=== PATIENT | male | born 1950 | race Caucasian/White ===

== ENCOUNTER 2020-09-21 13:59 | Inpatient (IN) | payer OTHER ==
[~2020-09-21] VITALS: Ht 182.9 cm; Wt 76.4 kg
[2020-09-21 14:59] LABS: Basophils # (auto) 0 10 ^3/uL (0-0.2); Basophils % (auto) 0.3 % (0.0-2.0); Eosinophils # (auto) 0 10 ^3/uL (0-0.8); Eosinophils % (auto) 0.2 % (0.0-7.0); Hematocrit 42.6 % (41.0-53.0); Hemoglobin 14.5 g/dL (13.5-17.5); Lymphocytes # (auto) 0.9 10 ^3/uL (0.4-5.4); Lymphocytes % (auto) 11.6 % (10.0-50.0); Mean Corpuscular Hemoglobin 29.6 pg (28.0-32.0); Mean Corpuscular Hgb Conc. 34.1 g/dL (32.0-36.0); Mean Corpuscular Volume 86.8 fL (80.0-100.0); Monocytes # (auto) 0.5 10 ^3/uL (0-1.3); Neutrophils # (auto) 6.3 10 ^3/uL (1.6-8.6); Neutrophils % (auto) 80.9 % (37.0-80.0); Red Blood Cells 4.91 10^6/uL (4.5-5.90); White Blood Cell 7.8 10^3/uL (4.4-10.8)
[2020-09-21] MEDS ORDERED: SODIUM CHLORIDE 0.9% 1,000 ML IVB ONE (15:00)
[2020-09-21] MEDS ORDERED: KETOROLAC TROMETH 30 MG/ML 1ML VIAL IV ONE (15:00)
[2020-09-21] MEDS ORDERED: MORPHINE SULFATE 4 MG/ML SYR/VIAL IV ONE (15:00)
[2020-09-21] MEDS ORDERED: ONDANSETRON HCL 4 MG/2 ML VIAL IV ONE (15:00)
[2020-09-21 15:04] LABS: Albumin 3.7 g/dL (3.4-5.0); Anion Gap 11 (5-15); Blood Urea Nitrogen 16 mg/dL (7-18); Carbon Dioxide 24 mmol/L (21-32); Chloride 100 mmol/L (98-107); Glucose 159 mg/dL (74-106); Potassium 3.2 mmol/L (3.5-5.1); Sodium 135 mmol/L (136-145)
[2020-09-21 15:06] LABS: Alanine Aminotransferase 12 U/L (16-61); Aspartate Aminotransferase 7 U/L (15-37); BUN/Creatinine Ratio 19.8; Calcium 8.4 mg/dL (8.5-10.1); GFR African American 122 mL/min; GFR Non-African American 101 mL/min
[2020-09-21 15:11] LABS: Alkaline Phosphatase 83 U/L (45-117); Bilirubin, Total 0.6 mg/dL (0.2-1.0)
[2020-09-21 15:18] LABS: Urine Bacteria NONE SEEN /hpf (None Seen); Urine Blood 2+ /uL (Negative); Urine Mucus FEW (None Seen); Urine Specific Gravity 1.028 (1.001-1.035); Urine WBC 5 /hpf (0 - 3)
[2020-09-21] MEDS ORDERED: POTASSIUM CHL 20 Meq TABLET PO ONE (16:15)
[2020-09-21] MEDS ORDERED: DOCUSATE SOD 100 MG CAP PO PRN (18:30)
[2020-09-21] MEDS ORDERED: ACETAMINOPHEN 325 MG TAB PO PRN (18:30)
[2020-09-21] MEDS ORDERED: ALUM & MAG HYDROX-SIMETH LIQ(MAALOX) 30 ML PO PRN (18:30)
[2020-09-21] MEDS ORDERED: LORazepam 0.5 MG TAB PO PRN (18:30)
[2020-09-21] MEDS ORDERED: LACTATED RINGER'S 1,000 ML IV ONE (18:30)
[2020-09-21] MEDS ORDERED: ONDANSETRON HCL 4 MG/2 ML VIAL IV PRN (18:30)
[2020-09-21] MEDS ORDERED: FUROSEMIDE 40 MG/4 ML VIAL IV ONE (18:30)
[2020-09-21] MEDS ORDERED: NITROGLYCERIN 0.4 MG SL TAB SL PRN ×2 (18:30)
[2020-09-21] MEDS ORDERED: MORPHINE SULF INJ 2 MG/ML SYRINGE 1ML IV PRN ×2 (18:30)
[2020-09-21] MEDS ORDERED: CEFTRIAXONE SODIUM 2 GM in D5W 5% 50 ML IV ONE (18:30)
[2020-09-21 18:55] LABS: Cholesterol 189 mg/dL (< 200); Triglycerides 98 mg/dL (< 150)
[2020-09-21 18:58] LABS: HDL Cholesterol 51 mg/dL (40-59); LDL Cholesterol 116 mg/dL (< 100)
[2020-09-21 19:07] LABS: Alcohol, Urine < 3.0 mg/dL (0-10); Amphetamine Screen, Urine NEGATIVE (NEGATIVE); Barbiturate Scree,Urine NEGATIVE (NEGATIVE); Benzodiazephine Screen, Urine NEGATIVE (NEGATIVE); Cannabinoid Screen, Urine POSITIVE (NEGATIVE); Cocaine Screen, Urine NEGATIVE (NEGATIVE); Opiate Scree,Urine POSITIVE (NEGATIVE); Phencyclidine Screen, Urine NEGATIVE (NEGATIVE)
[2020-09-21] MEDS: MORPHINE SULF INJ 2 MG/ML SYRINGE 1ML IV PRN (19:07)
[2020-09-21] MEDS: SOD CHL 0.9%/ KCL 20MEQ 1,000 ML IV SCH (19:07)
[2020-09-21 23:00] VITALS: BP 158/92
[2020-09-22] MEDS: MORPHINE SULF INJ 2 MG/ML SYRINGE 1ML IV PRN ×2 (00:19→09:20)
[2020-09-22 05:05] VITALS: BP 150/55
[2020-09-22] MEDS: SOD CHL 0.9%/ KCL 20MEQ 1,000 ML IV SCH ×2 (06:26→23:21)
[2020-09-22 08:59] LABS: BUN/Creatinine Ratio 17.7; Calcium 8.2 mg/dL (8.5-10.1); Potassium 3.4 mmol/L (3.5-5.1)
[2020-09-22] MEDS: CEFTRIAXONE SODIUM 2 GM in D5W 5% 50 ML IV SCH (09:19)
[2020-09-22] MEDS: POTASSIUM CHL 20 Meq TABLET PO SCH (09:20)
[2020-09-22] MEDS: HYDROcodone-ACET 5/325MG TAB PO PRN (11:59)
[2020-09-22] MEDS ORDERED: KETOROLAC TROMETH 30 MG/ML 1ML VIAL IV ONE (12:45)
[2020-09-22] MEDS ORDERED: SODIUM CHLORIDE 0.9% 1,000 ML IV ONE (12:45)
[2020-09-22 12:50] VITALS: BP 122/66
[2020-09-22] MEDS ORDERED: MANNITOL FTV 25% 12.5 GM/50 ML 50 ML IV ONE (13:00)
[2020-09-22 16:50] VITALS: BP 168/85
[2020-09-22] MEDS: TAMSULOSIN HYDROCHLORIDE 0.4 MG CAP PO SCH (17:41)
[2020-09-22 22:00] VITALS: BP 159/70
[2020-09-23] MEDS: HYDROcodone-ACET 5/325MG TAB PO PRN ×2 (00:06→21:09)
[2020-09-23 05:00] VITALS: BP 164/76
[2020-09-23] MEDS: MORPHINE SULF INJ 2 MG/ML SYRINGE 1ML IV PRN ×3 (05:09→23:33)
[2020-09-23] MEDS: CEFTRIAXONE SODIUM 2 GM in D5W 5% 50 ML IV SCH (09:23)
[2020-09-23] MEDS: POTASSIUM CHL 20 Meq TABLET PO SCH (09:23)
[2020-09-23 09:28] VITALS: BP 153/67
[2020-09-23] MEDS: SOD CHL 0.9%/ KCL 20MEQ 1,000 ML IV SCH ×2 (11:06→23:57)
[2020-09-23] MEDS ORDERED: MANNITOL FTV 25% 12.5 GM/50 ML 50 ML IV ONE ×2 (11:30)
[2020-09-23] MEDS ORDERED: KETOROLAC TROMETH 30 MG/ML 1ML VIAL IV ONE (11:30)
[2020-09-23] MEDS ORDERED: SODIUM CHLORIDE 0.9% 1,000 ML IV ONE (11:30)
[2020-09-23 12:42] VITALS: BP 153/74
[2020-09-23 17:32] VITALS: BP 167/79
[2020-09-23] MEDS: TAMSULOSIN HYDROCHLORIDE 0.4 MG CAP PO SCH (18:22)
[2020-09-23] MEDS: hydrALAZINE HCL 20 MG/ML VL IV PRN (18:23)
[2020-09-23 22:00] VITALS: BP 139/63
[2020-09-24] MEDS: SOD CHL 0.9%/ KCL 20MEQ 1,000 ML IV SCH ×3 (00:22→13:32)
[2020-09-24 05:00] VITALS: BP 133/55
[2020-09-24] MEDS: MORPHINE SULF INJ 2 MG/ML SYRINGE 1ML IV PRN ×2 (05:17→09:33)
[2020-09-24 05:31] LABS: Basophils # (auto) 0 10 ^3/uL (0-0.2); Basophils % (auto) 0.6 % (0.0-2.0); Eosinophils # (auto) 0.2 10 ^3/uL (0-0.8); Eosinophils % (auto) 2.6 % (0.0-7.0); Hematocrit 37.3 % (41.0-53.0); Hemoglobin 12.8 g/dL (13.5-17.5); Lymphocytes # (auto) 1.9 10 ^3/uL (0.4-5.4); Lymphocytes % (auto) 32.5 % (10.0-50.0); Mean Corpuscular Hemoglobin 29.8 pg (28.0-32.0); Mean Corpuscular Hgb Conc. 34.4 g/dL (32.0-36.0); Mean Corpuscular Volume 86.8 fL (80.0-100.0); Monocytes # (auto) 0.6 10 ^3/uL (0-1.3); Monocytes % (auto) 10.6 % (0.0-12.0); Neutrophils # (auto) 3.2 10 ^3/uL (1.6-8.6); Neutrophils % (auto) 53.7 % (37.0-80.0); Nucleated Red Blood Cells % 0.1 %; Red Blood Cells 4.29 10^6/uL (4.5-5.90); Red Cell Distribution Width 14.4 % (11.8-14.3); White Blood Cell 5.9 10^3/uL (4.4-10.8)
[2020-09-24 05:55] LABS: Magnesium 2.1 mg/dL (1.6-2.6); Potassium 3.8 mmol/L (3.5-5.1)
[2020-09-24 05:57] LABS: BUN/Creatinine Ratio 18.3; Calcium 8.1 mg/dL (8.5-10.1)
[2020-09-24 09:00] VITALS: BP 169/83
[2020-09-24] MEDS: POTASSIUM CHL 20 Meq TABLET PO SCH (09:32)
[2020-09-24] MEDS: hydrALAZINE HCL 20 MG/ML VL IV PRN ×3 (09:32→18:55)
[2020-09-24] MEDS: CEFTRIAXONE SODIUM 2 GM in D5W 5% 50 ML IV SCH (09:34)
[2020-09-24 09:50] LABS: INR 0.97 (0.9-1.15)
[2020-09-24] MEDS: HYDROcodone-ACET 5/325MG TAB PO PRN (11:13)
[2020-09-24 13:00] VITALS: BP 157/72
[2020-09-24] MEDS ORDERED: HYDROmorphone HCL 2 MG/ML VL IV PRN ×2 (13:00→18:45)
[2020-09-24] MEDS ORDERED: IOHEXOL 300 MG/ML 100ML BOTTLE IJ ONE (15:51)
[2020-09-24] MEDS ORDERED: fentaNYL CITRATE 100 MCG/2 ML VL ONE (16:24)
[2020-09-24] MEDS ORDERED: MIDAZOLAM HCL 1MG/1ML-2 ML VIAL ONE (16:24)
[2020-09-24] MEDS ORDERED: LIDOCAINE 2% (LOCAL ANESTH.) PF 5ml SDV ONE (16:25)
[2020-09-24] MEDS ORDERED: GLYCOPYRROLATE 0.2 MG/ML 1ML VIAL ONE (16:25)
[2020-09-24] MEDS ORDERED: PROPOFOL 10 MG/ML 20 ML IV ONE (16:25)
[2020-09-24] MEDS ORDERED: KETOROLAC TROMETH 30 MG/ML 1ML VIAL ONE (16:25)
[2020-09-24] MEDS ORDERED: ONDANSETRON HCL 4 MG/2 ML VIAL ONE (16:25)
[2020-09-24] MEDS ORDERED: ceFAZolin 1GM VL ONE (16:49)
[2020-09-24] MEDS ORDERED: KETAMINE HCL 10 ML ONE (16:49)
[2020-09-24] MEDS ORDERED: HYDROmorphone HCL 2 MG/ML VL ONE (16:51)
[2020-09-24] MEDS: TAMSULOSIN HYDROCHLORIDE 0.4 MG CAP PO SCH (18:00)
[2020-09-24] MEDS ORDERED: hydrALAZINE HCL 20 MG/ML VL ONE (18:40)
[2020-09-24] MEDS ORDERED: ONDANSETRON HCL 4 MG/2 ML VIAL IV PRN (18:45)
[2020-09-24] MEDS ORDERED: ACCU-CHEK COMFORT CURVE STRIP VI ONE (18:45)
[2020-09-24 22:13] VITALS: BP 151/81
[2020-09-25] MEDS: SOD CHL 0.9%/ KCL 20MEQ 1,000 ML IV SCH ×2 (02:42→15:50)
[2020-09-25 05:19] VITALS: BP 153/80
[2020-09-25] MEDS: hydrALAZINE HCL 20 MG/ML VL IV PRN (05:47)
[2020-09-25 06:11] LABS: Basophils # (auto) 0 10 ^3/uL (0-0.2); Basophils % (auto) 0.4 % (0.0-2.0); Eosinophils # (auto) 0.1 10 ^3/uL (0-0.8); Eosinophils % (auto) 0.9 % (0.0-7.0); Hematocrit 38.2 % (41.0-53.0); Lymphocytes # (auto) 1.4 10 ^3/uL (0.4-5.4); Lymphocytes % (auto) 17.9 % (10.0-50.0); Mean Corpuscular Hemoglobin 29.5 pg (28.0-32.0); Mean Corpuscular Volume 86.7 fL (80.0-100.0); Monocytes # (auto) 0.7 10 ^3/uL (0-1.3); Monocytes % (auto) 9.2 % (0.0-12.0); Neutrophils # (auto) 5.6 10 ^3/uL (1.6-8.6); Neutrophils % (auto) 71.6 % (37.0-80.0); Red Blood Cells 4.41 10^6/uL (4.5-5.90); Red Cell Distribution Width 14.4 % (11.8-14.3); White Blood Cell 7.8 10^3/uL (4.4-10.8)
[2020-09-25 06:24] LABS: BUN/Creatinine Ratio 19.4; Calcium 8.3 mg/dL (8.5-10.1)
[2020-09-25 09:00] VITALS: BP 144/75
[2020-09-25] MEDS: POTASSIUM CHL 20 Meq TABLET PO SCH (10:22)
[2020-09-25] MEDS: CEFTRIAXONE SODIUM 2 GM in D5W 5% 50 ML IV SCH (10:23)
[2020-09-25 12:58] VITALS: BP 145/73
[2020-09-25 14:30] VITALS: BP 145/73
[2020-09-25 16:51] VITALS: BP 149/80
== END 2020-09-25 17:00 | disposition home or self-care (01) | DRG 661 ==
LOC: ER 13:59 → CENTRAL 18:16 → OVERFLOW 09-25 08:55 → CENTRAL 09-25 08:58
PROVIDERS: ADMIT Hospitalist; ATTEND Internal Medicine
PROC: 0T768DZ Dilation of Right Ureter with Intraluminal Device, Via Natural or Artificial Opening Endoscopic (ICD-10-PCS; principal; 2020-09-24 16:29)
PROC: 0TF6XZZ Fragmentation in Right Ureter, External Approach (ICD-10-PCS; 2020-09-24 16:29)
DX: N13.6 Pyonephrosis (principal); E87.6 Hypokalemia; K52.9 Noninfective gastroenteritis and colitis, unspecified; R31.9 Hematuria, unspecified; I25.10 Atherosclerotic heart disease of native coronary artery without angina pectoris; N32.0 Bladder-neck obstruction; E11.9 Type 2 diabetes mellitus without complications; K57.90 Diverticulosis of intestine, part unspecified, without perforation or abscess without bleeding; Z20.822 Contact with and (suspected) exposure to COVID-19; F17.210 Nicotine dependence, cigarettes, uncomplicated; G89.29 Other chronic pain; N35.919 Unspecified urethral stricture, male, unspecified site; Z98.1 Arthrodesis status; Z98.61 Coronary angioplasty status; N40.1 Benign prostatic hyperplasia with lower urinary tract symptoms
CPT/HCPCS: 36415; 71045; 74176; 80048; 80053; 80061; 80307; 81001; 82533; 82962; 83036; 83735; 84154; 84484; 85025; 85610; 87040; 87086; 87426; 96361; 96365; 96375; 96376; G0378; J0690; J0696; J1885; J2001; J2250; J2405; J2704; J7060

== ENCOUNTER 2021-02-27 17:56 | Inpatient (IN) | payer OTHER ==
[~2021-02-27] VITALS: Ht 182.9 cm; Wt 80.2 kg
[2021-02-27 19:05] LABS: Basophils # (auto) 0 10 ^3/uL (0-0.2); Basophils % (auto) 0.1 % (0.0-2.0); Eosinophils # (auto) 0 10 ^3/uL (0-0.8); Hemoglobin 12.8 g/dL (13.5-17.5); Lymphocytes # (auto) 0.5 10 ^3/uL (0.4-5.4); Lymphocytes % (auto) 2.1 % (10.0-50.0); Mean Corpuscular Hemoglobin 28.8 pg (28.0-32.0); Mean Corpuscular Hgb Conc. 33.8 g/dL (32.0-36.0); Mean Corpuscular Volume 85.3 fL (80.0-100.0); Monocytes # (auto) 1.5 10 ^3/uL (0-1.3); Monocytes % (auto) 6.8 % (0.0-12.0); Neutrophils # (auto) 20.2 10 ^3/uL (1.6-8.6); Red Blood Cells 4.46 10^6/uL (4.5-5.90); Red Cell Distribution Width 13.4 % (11.8-14.3); White Blood Cell 22.2 10^3/uL (4.4-10.8)
[2021-02-27 19:14] LABS: Albumin 2.9 g/dL (3.4-5.0); Calcium 8.3 mg/dL (8.5-10.1); Potassium 3.7 mmol/L (3.5-5.1)
[2021-02-27 19:18] LABS: BUN/Creatinine Ratio 11.8; Bilirubin, Total 0.8 mg/dL (0.2-1.0); Total Protein 7.1 g/dL (6.4-8.2)
[2021-02-27] MEDS ORDERED: VANCOMYCIN 1GM/250ML 250 ML IV STA (19:34)
[2021-02-27] MEDS ORDERED: VANCOMYCIN 750mg/250ml 250 ML IV STA (19:34)
[2021-02-27] MEDS ORDERED: CEFEPIME 2 GM in SODIUM CHL 0.9% 50 ML IV ONE (19:45)
[2021-02-27] MEDS ORDERED: ONDANSETRON HCL 4 MG/2 ML VIAL IV ONE (19:45)
[2021-02-27] MEDS ORDERED: MORPHINE SULFATE 4 MG/ML SYR/VIAL IV ONE (19:45)
[2021-02-28] MEDS ORDERED: ACETAMINOPHEN 325 MG TAB PO PRN (00:30)
[2021-02-28] MEDS ORDERED: HYDROcodone-ACET 5/325MG TAB PO PRN (00:30)
[2021-02-28] MEDS ORDERED: DEXTROSE (50%) 50ML SYRG IV PRN (00:30)
[2021-02-28] MEDS ORDERED: ONDANSETRON HCL 4 MG/2 ML VIAL IV PRN (00:30)
[2021-02-28 05:35] VITALS: BP 120/55
[2021-02-28] MEDS: InsuLIN REG 1unit/0.01ml Soln (100units/ml) SC SCH ×4 (06:37→21:34)
[2021-02-28] MEDS: ACCU-CHEK COMFORT CURVE STRIP VI SCH ×4 (06:38→21:28)
[2021-02-28] MEDS: CLINDAMYCIN 600MG IV 50 ML IV SCH ×3 (06:38→21:34)
[2021-02-28] MEDS ORDERED: PNEUMOCOCCAL VACC POLYS 25 MCG/0.5 ML VIAL IM ONE (07:00)
[2021-02-28 08:15] VITALS: BP 121/57
[2021-02-28] MEDS: cefTRIAXone 1GM/50ML D5W 50 ML IV SCH (08:51)
[2021-02-28 09:00] VITALS: BP 121/57
[2021-02-28] MEDS: amLODIPine BESYLATE 5 MG TAB PO SCH (09:35)
[2021-02-28] MEDS: ENOXAPARIN SOD 40 MG/0.4 ML SYRINGE SC SCH (09:35)
[2021-02-28 16:40] VITALS: BP 131/68
[2021-02-28 17:49] LABS: BUN/Creatinine Ratio 16.7; Calcium 8.1 mg/dL (8.5-10.1); Potassium 3.6 mmol/L (3.5-5.1)
[2021-02-28 17:59] LABS: Hematocrit 34.3 % (41.0-53.0); Hemoglobin 11.6 g/dL (13.5-17.5); Mean Corpuscular Hemoglobin 28.8 pg (28.0-32.0); Mean Corpuscular Hgb Conc. 33.9 g/dL (32.0-36.0); Mean Corpuscular Volume 84.9 fL (80.0-100.0); Red Blood Cells 4.04 10^6/uL (4.5-5.90); Red Cell Distribution Width 13.8 % (11.8-14.3); White Blood Cell 19.1 10^3/uL (4.4-10.8)
[2021-02-28 18:01] LABS: Basophils % (manual) 0 (0.0-2.0); Blast Cells 0; Metamyelocytes % 0; Myelocytes % 0; Promyelocytes % 0; Reactive Lymphocytes 0
[2021-02-28 18:13] LABS: INR 1.06 (0.9-1.15); Partial Thromboplastin Time 33.1 sec (23.6-33.0)
[2021-02-28 18:45] LABS: Band Neutrophils % (manual) 4; Eosinophils % (manual) 1 (0-7); Lymphocytes % (manual) 3 (10.0-50.0); Monocytes % (manual) 3 (0-12)
[2021-02-28 21:34] VITALS: BP 126/54
[2021-03-01 05:00] VITALS: BP 117/64
[2021-03-01] MEDS: ACCU-CHEK COMFORT CURVE STRIP VI SCH ×4 (06:36→21:43)
[2021-03-01 06:37] LABS: Basophils # (auto) 0 10 ^3/uL (0-0.2); Basophils % (auto) 0.1 % (0.0-2.0); Eosinophils # (auto) 0 10 ^3/uL (0-0.8); Hematocrit 32.1 % (41.0-53.0); Hemoglobin 11.1 g/dL (13.5-17.5); Lymphocytes # (auto) 0.8 10 ^3/uL (0.4-5.4); Lymphocytes % (auto) 4.6 % (10.0-50.0); Mean Corpuscular Hemoglobin 29.4 pg (28.0-32.0); Mean Corpuscular Hgb Conc. 34.7 g/dL (32.0-36.0); Mean Corpuscular Volume 84.7 fL (80.0-100.0); Monocytes # (auto) 1.4 10 ^3/uL (0-1.3); Monocytes % (auto) 7.9 % (0.0-12.0); Neutrophils % (auto) 87.4 % (37.0-80.0); Red Blood Cells 3.79 10^6/uL (4.5-5.90); Red Cell Distribution Width 13.3 % (11.8-14.3); White Blood Cell 17.1 10^3/uL (4.4-10.8)
[2021-03-01] MEDS: InsuLIN REG 1unit/0.01ml Soln (100units/ml) SC SCH ×4 (06:39→21:46)
[2021-03-01 06:44] LABS: INR 1.06 (0.9-1.15); Partial Thromboplastin Time 35.4 sec (23.6-33.0)
[2021-03-01] MEDS: CLINDAMYCIN 600MG IV 50 ML IV SCH ×2 (06:48→14:45)
[2021-03-01 06:51] LABS: Calcium 7.8 mg/dL (8.5-10.1); Potassium 3.2 mmol/L (3.5-5.1)
[2021-03-01 06:52] LABS: BUN/Creatinine Ratio 14.3
[2021-03-01 08:15] VITALS: BP 109/53
[2021-03-01] MEDS: ENOXAPARIN SOD 40 MG/0.4 ML SYRINGE SC SCH (08:53)
[2021-03-01] MEDS: cefTRIAXone 1GM/50ML D5W 50 ML IV SCH (08:53)
[2021-03-01] MEDS: amLODIPine BESYLATE 5 MG TAB PO SCH (08:53)
[2021-03-01 09:00] VITALS: BP 109/53
[2021-03-01 12:47] VITALS: BP 125/65
[2021-03-01 17:22] VITALS: BP 119/59
[2021-03-01] MEDS ORDERED: POTASSIUM EFFERVESENT TAB 25 MEQ PO ONE (20:45)
[2021-03-01] MEDS ORDERED: VANCOMYCIN PER PHARMACY 0 MG IV SCH (20:45)
[2021-03-01] MEDS ORDERED: VANCOMYCIN 1GM/250ML 250 ML IV ONE (21:00)
[2021-03-01] MEDS: ATORVASTATIN 20 MG TAB PO SCH (21:47)
[2021-03-01 22:00] VITALS: BP 113/63
[2021-03-01] MEDS ORDERED: LIDOCAINE 1% (LOCAL ANESTH.) PF 5ml SDV ID ONE (23:45)
[2021-03-02 05:00] VITALS: BP 116/65
[2021-03-02] MEDS: ACCU-CHEK COMFORT CURVE STRIP VI SCH ×4 (06:12→22:07)
[2021-03-02] MEDS: InsuLIN REG 1unit/0.01ml Soln (100units/ml) SC SCH ×4 (06:17→21:33)
[2021-03-02 08:15] VITALS: BP 115/58
[2021-03-02] MEDS: cefTRIAXone 1GM/50ML D5W 50 ML IV SCH (09:11)
[2021-03-02 09:16] VITALS: BP 115/58
[2021-03-02] MEDS: amLODIPine BESYLATE 5 MG TAB PO SCH (10:00)
[2021-03-02] MEDS: VANCOMYCIN 1GM/250ML 250 ML IV SCH ×2 (10:08→17:50)
[2021-03-02] MEDS: SODIUM CHLOR 0.9% PF (SALINE LOCK) 10ML VIAL/SYR IV SCH ×2 (10:08→22:07)
[2021-03-02] MEDS: ENOXAPARIN SOD 40 MG/0.4 ML SYRINGE SC SCH (10:12)
[2021-03-02 10:28] LABS: Basophils # (auto) 0 10 ^3/uL (0-0.2); Basophils % (auto) 0.2 % (0.0-2.0); Eosinophils # (auto) 0 10 ^3/uL (0-0.8); Eosinophils % (auto) 0.1 % (0.0-7.0); Hematocrit 34.9 % (41.0-53.0); Hemoglobin 11.7 g/dL (13.5-17.5); Lymphocytes # (auto) 0.7 10 ^3/uL (0.4-5.4); Lymphocytes % (auto) 4.3 % (10.0-50.0); Mean Corpuscular Hemoglobin 28.9 pg (28.0-32.0); Mean Corpuscular Hgb Conc. 33.7 g/dL (32.0-36.0); Mean Corpuscular Volume 85.7 fL (80.0-100.0); Monocytes # (auto) 1.1 10 ^3/uL (0-1.3); Neutrophils # (auto) 14.4 10 ^3/uL (1.6-8.6); Neutrophils % (auto) 88.4 % (37.0-80.0); Red Blood Cells 4.07 10^6/uL (4.5-5.90); Red Cell Distribution Width 13.7 % (11.8-14.3); White Blood Cell 16.3 10^3/uL (4.4-10.8)
[2021-03-02 10:47] LABS: Calcium 8.2 mg/dL (8.5-10.1); Magnesium 3.3 mg/dL (1.6-2.6); Potassium 3.3 mmol/L (3.5-5.1)
[2021-03-02 10:53] LABS: BUN/Creatinine Ratio 11.1
[2021-03-02 13:00] VITALS: BP 144/61
[2021-03-02 16:59] VITALS: BP 127/59
[2021-03-02] MEDS ORDERED: SODIUM CHLORIDE 0.9% 1,000 ML IV ONE (18:00)
[2021-03-02] MEDS ORDERED: POTASSIUM EFFERVESENT TAB 25 MEQ PO ONE (18:00)
[2021-03-02 22:00] VITALS: BP 122/63
[2021-03-02] MEDS: ATORVASTATIN 20 MG TAB PO SCH (22:07)
[2021-03-03] MEDS: VANCOMYCIN 1GM/250ML 250 ML IV SCH ×3 (02:27→17:51)
[2021-03-03 05:00] VITALS: BP 117/59
[2021-03-03] MEDS: ACCU-CHEK COMFORT CURVE STRIP VI SCH ×4 (06:03→23:00)
[2021-03-03] MEDS: InsuLIN REG 1unit/0.01ml Soln (100units/ml) SC SCH ×4 (06:06→22:59)
[2021-03-03 06:40] LABS: Basophils # (auto) 0 10 ^3/uL (0-0.2); Basophils % (auto) 0.1 % (0.0-2.0); Eosinophils # (auto) 0 10 ^3/uL (0-0.8); Eosinophils % (auto) 0.1 % (0.0-7.0); Hematocrit 30.3 % (41.0-53.0); Hemoglobin 10.4 g/dL (13.5-17.5); Lymphocytes % (auto) 5.3 % (10.0-50.0); Mean Corpuscular Hemoglobin 29.1 pg (28.0-32.0); Mean Corpuscular Hgb Conc. 34.4 g/dL (32.0-36.0); Mean Corpuscular Volume 84.7 fL (80.0-100.0); Monocytes # (auto) 1.5 10 ^3/uL (0-1.3); Monocytes % (auto) 8.1 % (0.0-12.0); Neutrophils # (auto) 15.7 10 ^3/uL (1.6-8.6); Neutrophils % (auto) 86.4 % (37.0-80.0); Nucleated Red Blood Cells % 0.1 %; Red Blood Cells 3.58 10^6/uL (4.5-5.90); Red Cell Distribution Width 13.7 % (11.8-14.3); White Blood Cell 18.2 10^3/uL (4.4-10.8)
[2021-03-03 06:58] LABS: Calcium 7.3 mg/dL (8.5-10.1); Potassium 3.6 mmol/L (3.5-5.1)
[2021-03-03 08:15] VITALS: BP 120/52
[2021-03-03] MEDS: cefTRIAXone 1GM/50ML D5W 50 ML IV SCH (09:00)
[2021-03-03] MEDS: SODIUM CHLOR 0.9% PF (SALINE LOCK) 10ML VIAL/SYR IV SCH ×2 (09:12→22:58)
[2021-03-03] MEDS: amLODIPine BESYLATE 5 MG TAB PO SCH (09:12)
[2021-03-03] MEDS: ENOXAPARIN SOD 40 MG/0.4 ML SYRINGE SC SCH (09:13)
[2021-03-03] MEDS ORDERED: ceFAZolin 1GM/50ML 100 ML IV ONE (09:21)
[2021-03-03] MEDS ORDERED: ROPIVACAINE 0.5% (5MG/ML) 20ML AMPULE IJ ONE (09:55)
[2021-03-03] MEDS ORDERED: ceFAZolin 1GM VL ONE (09:55)
[2021-03-03] MEDS ORDERED: ONDANSETRON HCL 4 MG/2 ML VIAL ONE (10:03)
[2021-03-03] MEDS ORDERED: MIDAZOLAM HCL 2MG/2ML 2ml VIAL (1mg/ml) ONE (10:03)
[2021-03-03] MEDS ORDERED: KETAMINE HCL 10 ML ONE (10:03)
[2021-03-03] MEDS ORDERED: GLYCOPYRROLATE 0.2 MG/ML 1ML VIAL ONE (10:03)
[2021-03-03] MEDS ORDERED: BACITRACIN TOP OINT 1 UD PKG TOP ONE (10:27)
[2021-03-03] MEDS ORDERED: ACCU-CHEK COMFORT CURVE STRIP VI ONE (11:00)
[2021-03-03] MEDS ORDERED: ONDANSETRON HCL 4 MG/2 ML VIAL IV PRN (11:00)
[2021-03-03] MEDS ORDERED: HYDROmorphone HCL 2 MG/ML VL IV PRN (11:00)
[2021-03-03 22:00] VITALS: BP 123/72
[2021-03-03] MEDS: ATORVASTATIN 20 MG TAB PO SCH (22:58)
[2021-03-03] MEDS: TEMAZEPAM 15 MG CAP PO PRN (23:01)
[2021-03-04] MEDS: VANCOMYCIN 1GM/250ML 250 ML IV SCH ×3 (02:44→17:22)
[2021-03-04 04:19] LABS: Basophils # (auto) 0 10 ^3/uL (0-0.2); Basophils % (auto) 0.2 % (0.0-2.0); Eosinophils # (auto) 0.1 10 ^3/uL (0-0.8); Eosinophils % (auto) 0.4 % (0.0-7.0); Hematocrit 30.8 % (41.0-53.0); Hemoglobin 10.8 g/dL (13.5-17.5); Lymphocytes # (auto) 1.5 10 ^3/uL (0.4-5.4); Lymphocytes % (auto) 11.5 % (10.0-50.0); Mean Corpuscular Hemoglobin 29.7 pg (28.0-32.0); Mean Corpuscular Volume 84.7 fL (80.0-100.0); Monocytes # (auto) 1.2 10 ^3/uL (0-1.3); Monocytes % (auto) 9.1 % (0.0-12.0); Neutrophils # (auto) 10.3 10 ^3/uL (1.6-8.6); Neutrophils % (auto) 78.8 % (37.0-80.0); Nucleated Red Blood Cells % 0.1 %; Red Blood Cells 3.64 10^6/uL (4.5-5.90); Red Cell Distribution Width 13.8 % (11.8-14.3); White Blood Cell 13.1 10^3/uL (4.4-10.8)
[2021-03-04 04:39] LABS: BUN/Creatinine Ratio 11.4; Calcium 7.5 mg/dL (8.5-10.1); Potassium 3.4 mmol/L (3.5-5.1)
[2021-03-04 05:00] VITALS: BP 138/86
[2021-03-04] MEDS: ACCU-CHEK COMFORT CURVE STRIP VI SCH ×4 (06:45→23:17)
[2021-03-04] MEDS: InsuLIN REG 1unit/0.01ml Soln (100units/ml) SC SCH ×4 (06:50→23:11)
[2021-03-04 08:15] VITALS: BP 123/71
[2021-03-04 09:00] VITALS: BP 123/71
[2021-03-04] MEDS: cefTRIAXone 1GM/50ML D5W 50 ML IV SCH (09:01)
[2021-03-04] MEDS: ENOXAPARIN SOD 40 MG/0.4 ML SYRINGE SC SCH (09:35)
[2021-03-04] MEDS: SODIUM CHLOR 0.9% PF (SALINE LOCK) 10ML VIAL/SYR IV SCH ×2 (09:37→21:00)
[2021-03-04] MEDS ORDERED: RIVAROXABAN 10 MG TAB PO SCH (10:00)
[2021-03-04 13:00] VITALS: BP 140/71
[2021-03-04 17:00] VITALS: BP 152/73
[2021-03-04] MEDS: ATORVASTATIN 20 MG TAB PO SCH (21:00)
[2021-03-04] MEDS: TEMAZEPAM 15 MG CAP PO PRN (21:01)
[2021-03-04 22:00] VITALS: BP 120/67
[2021-03-05] MEDS: VANCOMYCIN 1GM/250ML 250 ML IV SCH ×2 (01:46→09:29)
[2021-03-05 06:09] VITALS: BP 112/55
[2021-03-05] MEDS: ACCU-CHEK COMFORT CURVE STRIP VI SCH ×2 (06:42→11:32)
[2021-03-05] MEDS: InsuLIN REG 1unit/0.01ml Soln (100units/ml) SC SCH ×2 (06:44→12:05)
[2021-03-05 06:57] LABS: Basophils # (auto) 0 10 ^3/uL (0-0.2); Basophils % (auto) 0.3 % (0.0-2.0); Eosinophils # (auto) 0.1 10 ^3/uL (0-0.8); Eosinophils % (auto) 0.8 % (0.0-7.0); Hematocrit 30.8 % (41.0-53.0); Hemoglobin 10.6 g/dL (13.5-17.5); Lymphocytes # (auto) 1.1 10 ^3/uL (0.4-5.4); Lymphocytes % (auto) 8.7 % (10.0-50.0); Mean Corpuscular Hgb Conc. 34.3 g/dL (32.0-36.0); Mean Corpuscular Volume 84.7 fL (80.0-100.0); Monocytes # (auto) 1.2 10 ^3/uL (0-1.3); Monocytes % (auto) 9.4 % (0.0-12.0); Neutrophils # (auto) 10.2 10 ^3/uL (1.6-8.6); Neutrophils % (auto) 80.8 % (37.0-80.0); Red Blood Cells 3.64 10^6/uL (4.5-5.90); Red Cell Distribution Width 13.7 % (11.8-14.3); White Blood Cell 12.7 10^3/uL (4.4-10.8)
[2021-03-05 07:22] LABS: Calcium 7.6 mg/dL (8.5-10.1); Potassium 3.3 mmol/L (3.5-5.1)
[2021-03-05 07:26] LABS: BUN/Creatinine Ratio 6.3
[2021-03-05 09:26] VITALS: BP 113/61
[2021-03-05] MEDS: SODIUM CHLOR 0.9% PF (SALINE LOCK) 10ML VIAL/SYR IV SCH (09:30)
[2021-03-05] MEDS: ENOXAPARIN SOD 40 MG/0.4 ML SYRINGE SC SCH (09:30)
[2021-03-05] MEDS ORDERED: levoFLOXacin 500MG 100 ML IV SCH (10:00)
[2021-03-05 11:36] VITALS: BP 119/58
== END 2021-03-05 16:43 | DRG 504 ==
LOC: ER 17:56 → OVERFLOW 02-28 00:19 → WEST WING 02-28 05:46
PROVIDERS: ADMIT Nurse Practitioner; ATTEND Internal Medicine
PROC: 3E0234Z Introduction of Serum, Toxoid and Vaccine into Muscle, Percutaneous Approach (ICD-10-PCS; principal; 2021-02-28)
PROC: 0QTN0ZZ Resection of Right Metatarsal, Open Approach (ICD-10-PCS; 2021-03-03)
PROC: 0Y6V0Z0 Detachment at Right 4th Toe, Complete, Open Approach (ICD-10-PCS; 2021-03-03 10:00)
DX: M86.8X7 Other osteomyelitis, ankle and foot (principal); L03.115 Cellulitis of right lower limb; I10 Essential (primary) hypertension; E11.65 Type 2 diabetes mellitus with hyperglycemia; I25.10 Atherosclerotic heart disease of native coronary artery without angina pectoris; L97.519 Non-pressure chronic ulcer of other part of right foot with unspecified severity; E11.621 Type 2 diabetes mellitus with foot ulcer; Z20.822 Contact with and (suspected) exposure to COVID-19; E11.69 Type 2 diabetes mellitus with other specified complication; R53.81 Other malaise; R53.83 Other fatigue; E11.51 Type 2 diabetes mellitus with diabetic peripheral angiopathy without gangrene; Z23 Encounter for immunization; Z68.24 Body mass index [BMI] 24.0-24.9, adult; Z79.01 Long term (current) use of anticoagulants; Z82.3 Family history of stroke; Z82.49 Family history of ischemic heart disease and other diseases of the circulatory system; Z87.442 Personal history of urinary calculi
CPT/HCPCS: 36415; 36569; 71045; 73590; 73620; 73700; 73718; 80048; 80053; 80061; 80202; 82962; 83036; 83605; 83735; 85007; 85025; 85027; 85610; 85652; 85730; 86850; 86900; 86901; 87040; 87070; 87075; 87077; 87186; 87205; 87426; 93926; 96365; 96375; 97163; G0378; J0690; J0696; J1815; J1956; J2250; J2405; J3490

== ENCOUNTER 2021-04-01 16:13 | Inpatient (IN) | payer OTHER ==
[~2021-04-01] VITALS: Ht 182.9 cm; Wt 76.2 kg
[2021-04-01 18:59] LABS: Basophils # (auto) 0 10 ^3/uL (0-0.2); Eosinophils # (auto) 0.1 10 ^3/uL (0-0.8); Eosinophils % (auto) 1.3 % (0.0-7.0); Monocytes # (auto) 0.6 10 ^3/uL (0-1.3); Neutrophils # (auto) 5.8 10 ^3/uL (1.6-8.6)
[2021-04-01 19:02] LABS: Basophils % (auto) 0.4 % (0.0-2.0); Hematocrit 33.6 % (41.0-53.0); Hemoglobin 11.4 g/dL (13.5-17.5); Lymphocytes % (auto) 13.1 % (10.0-50.0); Mean Corpuscular Hemoglobin 28.3 pg (28.0-32.0); Mean Corpuscular Hgb Conc. 33.8 g/dL (32.0-36.0); Mean Corpuscular Volume 83.7 fL (80.0-100.0); Monocytes % (auto) 8.3 % (0.0-12.0); Neutrophils % (auto) 76.9 % (37.0-80.0); Red Blood Cells 4.02 10^6/uL (4.5-5.90); Red Cell Distribution Width 14.3 % (11.8-14.3); White Blood Cell 7.5 10^3/uL (4.4-10.8)
[2021-04-01 19:05] LABS: INR 0.97 (0.9-1.15); Partial Thromboplastin Time 30.1 sec (23.6-33.0)
[2021-04-01 19:09] LABS: Calcium 8.7 mg/dL (8.5-10.1); Magnesium 2.8 mg/dL (1.6-2.6); Potassium 4.1 mmol/L (3.5-5.1)
[2021-04-01 19:14] LABS: BUN/Creatinine Ratio 15.7; Bilirubin, Total 0.2 mg/dL (0.2-1.0); Total Protein 7.9 g/dL (6.4-8.2)
[2021-04-01] MEDS ORDERED: D5W 5% IV STA (23:28)
[2021-04-01] MEDS ORDERED: VANCOMYCIN IV STA (23:28)
[2021-04-01] MEDS ORDERED: PIPERACILLIN-TAZO 4.5GM 100 ML IV ONE (23:30)
[2021-04-02] MEDS ORDERED: VANCOMYCIN 1GM/250ML 250 ML IV ONE (07:30)
[2021-04-02] MEDS ORDERED: HYDROcodone-ACET 5/325MG TAB PO PRN (12:15)
[2021-04-02] MEDS ORDERED: MORPHINE SULFATE INJECTION 2 MG/ML SYRG IV PRN (12:15)
[2021-04-02] MEDS ORDERED: MORPHINE SULFATE 4 MG/ML SYR/VIAL IV PRN (12:15)
[2021-04-02] MEDS ORDERED: NITROGLYCERIN 0.4 MG SL TAB SL PRN (12:15)
[2021-04-02] MEDS ORDERED: DEXTROSE (50%) 50ML SYRG IV PRN (12:15)
[2021-04-02] MEDS ORDERED: ONDANSETRON HCL 4 MG/2 ML VIAL IV PRN (12:15)
[2021-04-02] MEDS ORDERED: ACETAMINOPHEN 325 MG TAB PO PRN (12:15)
[2021-04-02] MEDS: SODIUM CHLORIDE 0.9% 1,000 ML IV SCH (12:54)
[2021-04-02] MEDS ORDERED: CLINDAMYCIN 600MG IV 50 ML IV SCH (14:00)
[2021-04-02] MEDS ORDERED: MEROPENEM 1GM IVPB 100 ML IV SCH (15:00)
[2021-04-02] MEDS ORDERED: levoFLOXacin 750MG 150 ML IV STA (17:00)
[2021-04-02] MEDS: InsuLIN REG 1unit/0.01ml Soln (100units/ml) SC SCH ×2 (18:22→23:05)
[2021-04-02] MEDS: ACCU-CHEK COMFORT CURVE STRIP VI SCH ×2 (18:22→23:05)
[2021-04-02 23:00] VITALS: BP 132/75
[2021-04-02 23:34] VITALS: BP 130/74
[2021-04-03 05:00] VITALS: BP 128/76
[2021-04-03] MEDS: SODIUM CHLORIDE 0.9% 1,000 ML IV SCH ×2 (05:24→21:48)
[2021-04-03] MEDS: ACCU-CHEK COMFORT CURVE STRIP VI SCH ×4 (05:54→21:50)
[2021-04-03] MEDS: InsuLIN REG 1unit/0.01ml Soln (100units/ml) SC SCH ×4 (05:54→21:53)
[2021-04-03] MEDS: ENOXAPARIN SOD 40 MG/0.4 ML SYRINGE SC SCH (08:28)
[2021-04-03 09:00] VITALS: BP 121/65
[2021-04-03] MEDS ORDERED: VANCOMYCIN PER PHARMACY 0 MG IV SCH (10:15)
[2021-04-03] MEDS ORDERED: VANCOMYCIN 1GM/250ML 250 ML IV ONE (10:30)
[2021-04-03 11:20] LABS: Basophils # (auto) 0 10 ^3/uL (0-0.2); Basophils % (auto) 0.7 % (0.0-2.0); Eosinophils # (auto) 0.1 10 ^3/uL (0-0.8); Eosinophils % (auto) 1.8 % (0.0-7.0); Hematocrit 30.9 % (41.0-53.0); Hemoglobin 10.4 g/dL (13.5-17.5); Lymphocytes # (auto) 1.1 10 ^3/uL (0.4-5.4); Lymphocytes % (auto) 15.2 % (10.0-50.0); Mean Corpuscular Hemoglobin 27.8 pg (28.0-32.0); Mean Corpuscular Hgb Conc. 33.5 g/dL (32.0-36.0); Monocytes # (auto) 0.8 10 ^3/uL (0-1.3); Monocytes % (auto) 10.4 % (0.0-12.0); Neutrophils # (auto) 5.2 10 ^3/uL (1.6-8.6); Neutrophils % (auto) 71.9 % (37.0-80.0); Nucleated Red Blood Cells % 0.1 %; Red Blood Cells 3.73 10^6/uL (4.5-5.90); Red Cell Distribution Width 14.2 % (11.8-14.3); White Blood Cell 7.3 10^3/uL (4.4-10.8)
[2021-04-03] MEDS ORDERED: MIDAZOLAM HCL 2MG/2ML 2ml VIAL (1mg/ml) ONE (11:42)
[2021-04-03] MEDS ORDERED: ANGIOMAX 250 MG VIAL IV ONE ×2 (11:42→12:40)
[2021-04-03] MEDS ORDERED: SODIUM CHL 0.9% 50 ML ONE ×2 (11:42→12:40)
[2021-04-03] MEDS ORDERED: fentaNYL CITRATE 100 MCG/2 ML VL ONE (11:43)
[2021-04-03] MEDS ORDERED: HEPARIN IN NS 1000Units/500mL 1,500 ML ONE (11:46)
[2021-04-03] MEDS ORDERED: LIDOCAINE 2%HCL (LOCAL ANESTH.) INJ 20ML MDV ONE (11:46)
[2021-04-03] MEDS ORDERED: IODIXANOL 320MG/ML 100ML BTL IV ONE (11:46)
[2021-04-03 11:49] LABS: Calcium 8.2 mg/dL (8.5-10.1); Potassium 4.1 mmol/L (3.5-5.1)
[2021-04-03 11:51] LABS: BUN/Creatinine Ratio 24.2
[2021-04-03] MEDS: SODIUM CHLOR 0.9% PF (SALINE LOCK) 10ML VIAL/SYR IV SCH ×2 (14:00→21:49)
[2021-04-03] MEDS: INSULIN LANTUS (GLARGINE) 1 /0.01ml (100units/ml) SC SCH (16:30)
[2021-04-03 17:00] VITALS: BP 143/81
[2021-04-03 20:00] VITALS: BP 140/76
[2021-04-03] MEDS: VANCOMYCIN 1GM/250ML 250 ML IV SCH (21:50)
[2021-04-03 22:00] VITALS: BP 140/76
[2021-04-04 05:00] VITALS: BP 130/62
[2021-04-04] MEDS: SODIUM CHLOR 0.9% PF (SALINE LOCK) 10ML VIAL/SYR IV SCH ×3 (06:30→21:51)
[2021-04-04] MEDS: ACCU-CHEK COMFORT CURVE STRIP VI SCH ×4 (06:44→21:51)
[2021-04-04] MEDS: InsuLIN REG 1unit/0.01ml Soln (100units/ml) SC SCH ×4 (06:49→21:59)
[2021-04-04] MEDS: INSULIN LANTUS (GLARGINE) 1 /0.01ml (100units/ml) SC SCH (06:49)
[2021-04-04 07:46] LABS: Basophils # (auto) 0 10 ^3/uL (0-0.2); Basophils % (auto) 0.4 % (0.0-2.0); Eosinophils # (auto) 0.1 10 ^3/uL (0-0.8); Hematocrit 30.3 % (41.0-53.0); Hemoglobin 10.2 g/dL (13.5-17.5); Lymphocytes # (auto) 0.9 10 ^3/uL (0.4-5.4); Mean Corpuscular Hgb Conc. 33.6 g/dL (32.0-36.0); Mean Corpuscular Volume 83.2 fL (80.0-100.0); Monocytes # (auto) 0.7 10 ^3/uL (0-1.3); Monocytes % (auto) 10.8 % (0.0-12.0); Neutrophils # (auto) 4.9 10 ^3/uL (1.6-8.6); Neutrophils % (auto) 73.8 % (37.0-80.0); Red Blood Cells 3.64 10^6/uL (4.5-5.90); White Blood Cell 6.7 10^3/uL (4.4-10.8)
[2021-04-04] MEDS: VANCOMYCIN 1GM/250ML 250 ML IV SCH ×2 (08:00→17:53)
[2021-04-04 08:07] LABS: BUN/Creatinine Ratio 20.6
[2021-04-04] MEDS: ENOXAPARIN SOD 40 MG/0.4 ML SYRINGE SC SCH (08:35)
[2021-04-04 09:00] VITALS: BP 121/65
[2021-04-04 12:53] VITALS: BP 152/78
[2021-04-04] MEDS: SODIUM CHLORIDE 0.9% 1,000 ML IV SCH (14:15)
[2021-04-04 16:40] VITALS: BP 137/72
[2021-04-04 20:00] VITALS: BP 126/68
[2021-04-04 22:00] VITALS: BP 126/68
[2021-04-05] MEDS: VANCOMYCIN 1GM/250ML 250 ML IV SCH ×2 (04:19→14:17)
[2021-04-05 05:00] VITALS: BP 113/60
[2021-04-05] MEDS: SODIUM CHLOR 0.9% PF (SALINE LOCK) 10ML VIAL/SYR IV SCH ×3 (06:21→23:49)
[2021-04-05] MEDS: ACCU-CHEK COMFORT CURVE STRIP VI SCH ×4 (06:22→23:50)
[2021-04-05] MEDS: InsuLIN REG 1unit/0.01ml Soln (100units/ml) SC SCH ×4 (06:25→23:52)
[2021-04-05] MEDS: INSULIN LANTUS (GLARGINE) 1 /0.01ml (100units/ml) SC SCH (06:28)
[2021-04-05] MEDS: SODIUM CHLORIDE 0.9% 1,000 ML IV SCH ×2 (06:48→23:50)
[2021-04-05 07:50] LABS: Basophils # (auto) 0 10 ^3/uL (0-0.2); Basophils % (auto) 0.7 % (0.0-2.0); Eosinophils # (auto) 0 10 ^3/uL (0-0.8); Hematocrit 29.9 % (41.0-53.0); Hemoglobin 10.1 g/dL (13.5-17.5); Mean Corpuscular Hemoglobin 27.9 pg (28.0-32.0); Mean Corpuscular Hgb Conc. 33.6 g/dL (32.0-36.0); Mean Corpuscular Volume 82.9 fL (80.0-100.0); Neutrophils # (auto) 2.3 10 ^3/uL (1.6-8.6); Neutrophils % (auto) 59.1 % (37.0-80.0); Red Blood Cells 3.61 10^6/uL (4.5-5.90); Red Cell Distribution Width 14.1 % (11.8-14.3); White Blood Cell 3.9 10^3/uL (4.4-10.8)
[2021-04-05 08:12] LABS: Lymphocytes % (auto) 21.5 % (10.0-50.0); Monocytes % (auto) 17.7 % (0.0-12.0)
[2021-04-05 08:13] LABS: Lymphocytes # (auto) 0.9 10 ^3/uL (0.4-5.4); Monocytes # (auto) 0.6 10 ^3/uL (0-1.3)
[2021-04-05 08:21] LABS: Potassium 3.9 mmol/L (3.5-5.1)
[2021-04-05 08:25] LABS: BUN/Creatinine Ratio 15.7; Calcium 7.9 mg/dL (8.5-10.1)
[2021-04-05 09:00] VITALS: BP 135/72
[2021-04-05] MEDS: ENOXAPARIN SOD 40 MG/0.4 ML SYRINGE SC SCH (09:39)
[2021-04-05] MEDS: levoFLOXacin 750MG 150 ML IV SCH (12:31)
[2021-04-05 13:00] VITALS: BP 138/69
[2021-04-05 17:00] VITALS: BP 123/71
[2021-04-05 22:00] VITALS: BP 127/66
[2021-04-06] MEDS: VANCOMYCIN 1GM/250ML 250 ML IV SCH ×4 (00:33→22:52)
[2021-04-06 05:00] VITALS: BP 124/62
[2021-04-06] MEDS: SODIUM CHLOR 0.9% PF (SALINE LOCK) 10ML VIAL/SYR IV SCH ×3 (05:41→22:52)
[2021-04-06 05:50] LABS: Urine Bacteria FEW /hpf (None Seen); Urine Blood Negative /uL (Negative); Urine Specific Gravity 1.011 (1.001-1.035); Urine WBC 39 /hpf (0 - 3)
[2021-04-06] MEDS: ACCU-CHEK COMFORT CURVE STRIP VI SCH ×4 (05:59→22:00)
[2021-04-06] MEDS: InsuLIN REG 1unit/0.01ml Soln (100units/ml) SC SCH ×4 (06:00→22:00)
[2021-04-06] MEDS: INSULIN LANTUS (GLARGINE) 1 /0.01ml (100units/ml) SC SCH (06:00)
[2021-04-06 06:55] LABS: Basophils # (auto) 0 10 ^3/uL (0-0.2); Eosinophils # (auto) 0 10 ^3/uL (0-0.8); Eosinophils % (auto) 0.7 % (0.0-7.0); Lymphocytes # (auto) 0.9 10 ^3/uL (0.4-5.4); Monocytes # (auto) 0.8 10 ^3/uL (0-1.3); Neutrophils # (auto) 2.5 10 ^3/uL (1.6-8.6); White Blood Cell 4.3 10^3/uL (4.4-10.8)
[2021-04-06 07:00] LABS: Basophils % (auto) 0.6 % (0.0-2.0); Hematocrit 31.8 % (41.0-53.0); Hemoglobin 10.6 g/dL (13.5-17.5); Lymphocytes % (auto) 21.6 % (10.0-50.0); Mean Corpuscular Hemoglobin 27.4 pg (28.0-32.0); Mean Corpuscular Hgb Conc. 33.3 g/dL (32.0-36.0); Mean Corpuscular Volume 82.4 fL (80.0-100.0); Monocytes % (auto) 18.4 % (0.0-12.0); Neutrophils % (auto) 58.7 % (37.0-80.0); Nucleated Red Blood Cells % 0.1 %; Red Blood Cells 3.86 10^6/uL (4.5-5.90)
[2021-04-06 07:01] LABS: INR 1.05 (0.9-1.15)
[2021-04-06 07:08] LABS: BUN/Creatinine Ratio 17.1; Calcium 8.3 mg/dL (8.5-10.1); Potassium 4.1 mmol/L (3.5-5.1)
[2021-04-06] MEDS ORDERED: ceFAZolin 1GM/50ML 0 ML IV ONE (07:08)
[2021-04-06] MEDS ORDERED: DAKINS HALF STR 0.25% (NaHypochlorite) 473 ML TOPICAL SOL TOP ONE (07:15)
[2021-04-06] MEDS ORDERED: LIDOCAINE 1% HCL (LOCAL ANESTH.) INJ 20ML MDV ONE (07:23)
[2021-04-06] MEDS ORDERED: BUPIVACAINE 0.5% MPF INJ 30ML SDV IJ ONE (07:23)
[2021-04-06] MEDS ORDERED: ceFAZolin 1GM VL ONE (07:27)
[2021-04-06] MEDS ORDERED: MIDAZOLAM HCL 2MG/2ML 2ml VIAL (1mg/ml) ONE (07:35)
[2021-04-06] MEDS ORDERED: fentaNYL CITRATE 5 ML ONE (07:35)
[2021-04-06] MEDS ORDERED: ONDANSETRON HCL 4 MG/2 ML VIAL ONE (08:06)
[2021-04-06] MEDS ORDERED: PROPOFOL 10 MG/ML 20 ML IV ONE (08:06)
[2021-04-06] MEDS ORDERED: CALCIUM CHL(10%) 100MG/ML 10ML VIAL IV ONE (08:20)
[2021-04-06] MEDS ORDERED: HYDROmorphone HCL 2 MG/ML VL IV PRN (08:45)
[2021-04-06] MEDS ORDERED: METOCLOPRAMIDE HCL 5MG/ml INJ 2ml VIAL IV PRN (08:45)
[2021-04-06 11:13] VITALS: BP 131/65
[2021-04-06] MEDS: levoFLOXacin 750MG 150 ML IV SCH (11:14)
[2021-04-06] MEDS: ENOXAPARIN SOD 40 MG/0.4 ML SYRINGE SC SCH (11:15)
[2021-04-06 13:00] VITALS: BP 129/66
[2021-04-06] MEDS: SODIUM CHLORIDE 0.9% 1,000 ML IV SCH ×2 (16:15→22:51)
[2021-04-06 17:00] VITALS: BP 125/59
[2021-04-06 22:00] VITALS: BP 110/59
[2021-04-07 05:00] VITALS: BP 119/65
[2021-04-07] MEDS: InsuLIN REG 1unit/0.01ml Soln (100units/ml) SC SCH ×4 (06:33→23:31)
[2021-04-07] MEDS: SODIUM CHLORIDE 0.9% 1,000 ML IV SCH (06:40)
[2021-04-07] MEDS: SODIUM CHLOR 0.9% PF (SALINE LOCK) 10ML VIAL/SYR IV SCH ×3 (06:43→23:29)
[2021-04-07] MEDS: VANCOMYCIN 1GM/250ML 250 ML IV SCH ×2 (06:43→16:00)
[2021-04-07] MEDS: INSULIN LANTUS (GLARGINE) 1 /0.01ml (100units/ml) SC SCH (06:44)
[2021-04-07] MEDS: ACCU-CHEK COMFORT CURVE STRIP VI SCH ×4 (06:44→23:29)
[2021-04-07 07:34] LABS: Basophils # (auto) 0.1 10 ^3/uL (0-0.2); Basophils % (auto) 2.2 % (0.0-2.0); Eosinophils # (auto) 0 10 ^3/uL (0-0.8); Eosinophils % (auto) 0.6 % (0.0-7.0); Hemoglobin 9.6 g/dL (13.5-17.5); Lymphocytes % (auto) 18.5 % (10.0-50.0); Mean Corpuscular Hemoglobin 27.3 pg (28.0-32.0); Mean Corpuscular Hgb Conc. 33.1 g/dL (32.0-36.0); Mean Corpuscular Volume 82.4 fL (80.0-100.0); Monocytes # (auto) 0.6 10 ^3/uL (0-1.3); Neutrophils # (auto) 3.8 10 ^3/uL (1.6-8.6); Neutrophils % (auto) 67.7 % (37.0-80.0); Nucleated Red Blood Cells % 0.1 %; Red Blood Cells 3.52 10^6/uL (4.5-5.90); Red Cell Distribution Width 13.8 % (11.8-14.3); White Blood Cell 5.6 10^3/uL (4.4-10.8)
[2021-04-07 07:54] LABS: Magnesium 2.7 mg/dL (1.6-2.6); Potassium 4.2 mmol/L (3.5-5.1)
[2021-04-07 09:00] VITALS: BP 130/72
[2021-04-07] MEDS: ENOXAPARIN SOD 40 MG/0.4 ML SYRINGE SC SCH (10:00)
[2021-04-07] MEDS: levoFLOXacin 750MG 150 ML IV SCH (10:38)
[2021-04-07 20:00] VITALS: BP 113/61
[2021-04-08] VITALS (8 sets, daily range): BP systolic 106–133; BP diastolic 60–93
[2021-04-08] MEDS: VANCOMYCIN 1GM/250ML 250 ML IV SCH ×2 (01:55→12:00)
[2021-04-08] MEDS: SODIUM CHLORIDE 0.9% 1,000 ML IV SCH (02:10)
[2021-04-08] MEDS: SODIUM CHLOR 0.9% PF (SALINE LOCK) 10ML VIAL/SYR IV SCH ×2 (05:23→14:04)
[2021-04-08] MEDS: INSULIN LANTUS (GLARGINE) 1 /0.01ml (100units/ml) SC SCH (06:44)
[2021-04-08] MEDS: InsuLIN REG 1unit/0.01ml Soln (100units/ml) SC SCH ×3 (06:44→17:00)
[2021-04-08] MEDS: ACCU-CHEK COMFORT CURVE STRIP VI SCH ×3 (07:00→17:00)
[2021-04-08] MEDS: levoFLOXacin 750MG 150 ML IV SCH (10:00)
[2021-04-08] MEDS: ENOXAPARIN SOD 40 MG/0.4 ML SYRINGE SC SCH (11:26)
[2021-04-08] MEDS ORDERED: INSLANTI SC (11:42)
[2021-04-08] MEDS ORDERED: GLIP5TAB12 PO (11:42)
[2021-04-08] MEDS ORDERED: HYDR-4902 PO (11:42)
[2021-04-08] MEDS ORDERED: INSU-567 XX (11:42)
[2021-04-08] MEDS ORDERED: BLOO1KIT60 XX (11:42)
[2021-04-08] MEDS ORDERED: MEROPENEM 1GM IVPB 100 ML IV SCH ×2 (14:00→17:00)
[2021-04-09] MEDS ORDERED: glipiZIDE 5 MG TAB PO SCH (07:00)
== END 2021-04-08 20:17 | disposition home health service (06) | DRG 252 ==
LOC: ER 16:13 → TELE 04-02 12:07 → TELE-WESTW 04-02 22:45
PROVIDERS: ADMIT Internal Medicine; ATTEND Internal Medicine
PROC: 047M3ZZ Dilation of Right Popliteal Artery, Percutaneous Approach (ICD-10-PCS; 2021-04-03)
PROC: 04FP3ZZ Fragmentation of Right Anterior Tibial Artery, Percutaneous Approach (ICD-10-PCS; 2021-04-03)
PROC: B41GYZZ Fluoroscopy of Left Lower Extremity Arteries using Other Contrast (ICD-10-PCS; 2021-04-03)
PROC: B41FYZZ Fluoroscopy of Right Lower Extremity Arteries using Other Contrast (ICD-10-PCS; 2021-04-03)
PROC: 0JBQ0ZZ Excision of Right Foot Subcutaneous Tissue and Fascia, Open Approach (ICD-10-PCS; principal; 2021-04-06 07:39)
DX: E11.52 Type 2 diabetes mellitus with diabetic peripheral angiopathy with gangrene (principal); M72.6 Necrotizing fasciitis; M86.171 Other acute osteomyelitis, right ankle and foot; L03.115 Cellulitis of right lower limb; E87.1 Hypo-osmolality and hyponatremia; M00.9 Pyogenic arthritis, unspecified; I25.10 Atherosclerotic heart disease of native coronary artery without angina pectoris; E11.69 Type 2 diabetes mellitus with other specified complication; E11.621 Type 2 diabetes mellitus with foot ulcer; L08.9 Local infection of the skin and subcutaneous tissue, unspecified; I10 Essential (primary) hypertension; D64.9 Anemia, unspecified; Z20.822 Contact with and (suspected) exposure to COVID-19; L97.519 Non-pressure chronic ulcer of other part of right foot with unspecified severity; Z79.2 Long term (current) use of antibiotics; Z79.4 Long term (current) use of insulin; Z82.3 Family history of stroke; Z87.442 Personal history of urinary calculi; Z82.49 Family history of ischemic heart disease and other diseases of the circulatory system; Z83.3 Family history of diabetes mellitus; Z95.820 Peripheral vascular angioplasty status with implants and grafts; Z90.49 Acquired absence of other specified parts of digestive tract; Z89.421 Acquired absence of other right toe(s)
CPT/HCPCS: 36415; 71045; 73700; 80048; 80053; 80202; 81001; 82565; 82962; 83036; 83735; 85025; 85610; 85652; 85730; 86850; 86900; 86901; 87070; 87075; 87077; 87186; 87205; 87426; 93005; 93306; 96365; 96367; 99152; 99153; G0378; J0690; J1815; J1956; J2001; J2185; J2250; J2405; J2543; J2704; J3490; J7042; J7060; Q9967

== ENCOUNTER 2021-04-22 15:26 | Inpatient (IN) | payer OTHER ==
[~2021-04-22] VITALS: Ht 182.9 cm; Wt 74.1 kg
[~2021-04-22 15:26] MED LIST: BLOO1KIT60 XX; GLIP5TAB12 PO; HYDR-4902 PO; INSLANTI SC; INSU-567 XX; MIDAZOLAM HCL 2MG/2ML 2ml VIAL (1mg/ml) IV ONE
[2021-04-22] MEDS ORDERED: CLINDAMYCIN 600MG IV 50 ML IV ONE (17:15)
[2021-04-22 17:50] LABS: Basophils # (auto) 0.1 10 ^3/uL (0-0.2); Basophils % (auto) 0.5 % (0.0-2.0); Eosinophils # (auto) 0 10 ^3/uL (0-0.8); Eosinophils % (auto) 0.4 % (0.0-7.0); Hematocrit 32.2 % (41.0-53.0); Lymphocytes # (auto) 1.1 10 ^3/uL (0.4-5.4); Lymphocytes % (auto) 10.9 % (10.0-50.0); Mean Corpuscular Hemoglobin 27.7 pg (28.0-32.0); Mean Corpuscular Hgb Conc. 34.1 g/dL (32.0-36.0); Mean Corpuscular Volume 81.2 fL (80.0-100.0); Monocytes # (auto) 0.6 10 ^3/uL (0-1.3); Monocytes % (auto) 6.1 % (0.0-12.0); Neutrophils # (auto) 8.3 10 ^3/uL (1.6-8.6); Neutrophils % (auto) 82.1 % (37.0-80.0); Red Blood Cells 3.96 10^6/uL (4.5-5.90); White Blood Cell 10.1 10^3/uL (4.4-10.8)
[2021-04-22 17:59] LABS: Albumin 3.1 g/dL (3.4-5.0); Calcium 8.7 mg/dL (8.5-10.1); Potassium 3.9 mmol/L (3.5-5.1)
[2021-04-22 18:02] LABS: BUN/Creatinine Ratio 21.3; Bilirubin, Total 0.4 mg/dL (0.2-1.0); Total Protein 8.1 g/dL (6.4-8.2)
[2021-04-23] MEDS ORDERED: CLINDAMYCIN 600MG IV 50 ML IV ONE (11:30)
[2021-04-23] MEDS ORDERED: cefTRIAXone 1GM/50ML D5W 50 ML IV ONE (11:30)
[2021-04-23] MEDS ORDERED: PIPERACILLIN-TAZOB 3.375GM 100 ML IV ONE (11:30)
[2021-04-23] MEDS ORDERED: ACETAMINOPHEN 325 MG TAB PO PRN (12:00)
[2021-04-23] MEDS ORDERED: NITROGLYCERIN 0.4 MG SL TAB SL PRN (12:00)
[2021-04-23] MEDS ORDERED: ONDANSETRON HCL 4 MG/2 ML VIAL IV PRN (12:00)
[2021-04-23] MEDS ORDERED: HYDROcodone-ACET 5/325MG TAB PO PRN (12:00)
[2021-04-23] MEDS ORDERED: DOCUSATE SOD 100 MG CAP PO PRN (12:00)
[2021-04-23] MEDS ORDERED: MORPHINE SULFATE INJECTION 2 MG/ML SYRG IV PRN (12:00)
[2021-04-23] MEDS ORDERED: MORPHINE SULFATE 4 MG/ML SYR/VIAL IV PRN (12:00)
[2021-04-23] MEDS: PIPERACILLIN-TAZOB 3.375GM 100 ML IV SCH ×2 (13:11→21:20)
[2021-04-23] MEDS: SODIUM CHLORIDE 0.9% 1,000 ML IV SCH ×2 (13:12→21:23)
[2021-04-23] MEDS: CLINDAMYCIN 600MG IV 50 ML IV SCH ×3 (14:00→22:47)
[2021-04-23 15:31] LABS: INR 1.03 (0.9-1.15)
[2021-04-23 17:00] VITALS: BP 152/84
[2021-04-23 20:00] VITALS: BP 117/89
[2021-04-23 22:00] VITALS: BP 117/59
[2021-04-23] MEDS ORDERED: DEXTROSE (50%) 50ML SYRG IV PRN (23:15)
[2021-04-24] MEDS: PIPERACILLIN-TAZOB 3.375GM 100 ML IV SCH ×3 (02:12→11:51)
[2021-04-24 05:00] VITALS: BP 114/68
[2021-04-24] MEDS: CLINDAMYCIN 600MG IV 50 ML IV SCH (06:00)
[2021-04-24 06:03] LABS: Lymphocytes # (auto) 1.1 10 ^3/uL (0.4-5.4); Mean Corpuscular Volume 80.8 fL (80.0-100.0); Monocytes # (auto) 0.7 10 ^3/uL (0-1.3); Neutrophils # (auto) 4.7 10 ^3/uL (1.6-8.6); White Blood Cell 6.7 10^3/uL (4.4-10.8)
[2021-04-24 06:06] LABS: Basophils # (auto) 0.1 10 ^3/uL (0-0.2); Basophils % (auto) 0.8 % (0.0-2.0); Eosinophils # (auto) 0.1 10 ^3/uL (0-0.8); Eosinophils % (auto) 2.1 % (0.0-7.0); Hematocrit 29.9 % (41.0-53.0); Hemoglobin 9.8 g/dL (13.5-17.5); Lymphocytes % (auto) 16.7 % (10.0-50.0); Mean Corpuscular Hemoglobin 26.4 pg (28.0-32.0); Mean Corpuscular Hgb Conc. 32.6 g/dL (32.0-36.0); Monocytes % (auto) 10.2 % (0.0-12.0); Neutrophils % (auto) 70.2 % (37.0-80.0); Nucleated Red Blood Cells % 0.1 %; Red Cell Distribution Width 15.4 % (11.8-14.3)
[2021-04-24 06:36] LABS: Potassium 3.9 mmol/L (3.5-5.1)
[2021-04-24 06:43] LABS: Albumin 2.6 g/dL (3.4-5.0); BUN/Creatinine Ratio 23.6; Bilirubin, Total 0.4 mg/dL (0.2-1.0); Calcium 8.3 mg/dL (8.5-10.1); Total Protein 7.2 g/dL (6.4-8.2)
[2021-04-24] MEDS: ACCU-CHEK COMFORT CURVE STRIP VI SCH ×4 (07:00→22:12)
[2021-04-24] MEDS: InsuLIN REG 1unit/0.01ml Soln (100units/ml) SC SCH ×4 (07:00→22:31)
[2021-04-24 08:38] VITALS: BP 126/72
[2021-04-24] MEDS ORDERED: DAKINS HALF STR 0.25% (NaHypochlorite) 473 ML TOPICAL SOL TOP ONE (09:00)
[2021-04-24] MEDS: ENOXAPARIN SOD 40 MG/0.4 ML SYRINGE SC SCH (11:22)
[2021-04-24 12:45] VITALS: BP 130/75
[2021-04-24] MEDS ORDERED: BUPIVACAINE 0.5% P/F INJ 10 ML VIAL ONE (14:00)
[2021-04-24] MEDS ORDERED: CeftoloZANE-TAZOB 1g/0.5g in D5W 5% 100 ML IV ONE (15:00)
[2021-04-24] MEDS ORDERED: VANCOMYCIN PER PHARMACY 0 MG IV SCH (15:00)
[2021-04-24 17:00] VITALS: BP 112/52
[2021-04-24 20:00] VITALS: BP 138/71
[2021-04-24] MEDS: VANCOMYCIN 1GM/250ML 250 ML IV SCH (21:10)
[2021-04-24] MEDS: DAKINS QUARTER STR 0.125% (NaHypochlorite) 473 ML TOPICAL SOL TOP SCH (22:12)
[2021-04-24] MEDS: SODIUM CHLORIDE 0.9% 1,000 ML IV SCH (22:53)
[2021-04-25] MEDS: CeftoloZANE-TAZOB 1g/0.5g in D5W 5% 100 ML IV SCH ×3 (01:56→16:56)
[2021-04-25 01:59] LABS: Urine Bacteria NONE SEEN /hpf (None Seen); Urine Blood Negative /uL (Negative); Urine Specific Gravity 1.022 (1.001-1.035); Urine WBC 32 /hpf (0 - 3)
[2021-04-25] MEDS: VANCOMYCIN 1GM/250ML 250 ML IV SCH ×2 (03:54→14:00)
[2021-04-25 05:00] VITALS: BP 125/60
[2021-04-25] MEDS: SODIUM CHLORIDE 0.9% 1,000 ML IV SCH ×2 (05:11→14:00)
[2021-04-25] MEDS: ACCU-CHEK COMFORT CURVE STRIP VI SCH ×4 (06:45→21:43)
[2021-04-25] MEDS: InsuLIN REG 1unit/0.01ml Soln (100units/ml) SC SCH ×4 (06:51→21:51)
[2021-04-25 07:58] LABS: Eosinophils # (auto) 0.1 10 ^3/uL (0-0.8); Eosinophils % (auto) 1.9 % (0.0-7.0); Hemoglobin 9.7 g/dL (13.5-17.5); Monocytes # (auto) 0.8 10 ^3/uL (0-1.3); White Blood Cell 7.2 10^3/uL (4.4-10.8)
[2021-04-25 08:01] LABS: Basophils # (auto) 0.1 10 ^3/uL (0-0.2); Basophils % (auto) 0.8 % (0.0-2.0); Hematocrit 29.4 % (41.0-53.0); Lymphocytes # (auto) 1.2 10 ^3/uL (0.4-5.4); Lymphocytes % (auto) 17.1 % (10.0-50.0); Mean Corpuscular Hemoglobin 26.4 pg (28.0-32.0); Mean Corpuscular Hgb Conc. 33.1 g/dL (32.0-36.0); Mean Corpuscular Volume 79.9 fL (80.0-100.0); Monocytes % (auto) 11.1 % (0.0-12.0); Neutrophils % (auto) 69.1 % (37.0-80.0); Red Blood Cells 3.68 10^6/uL (4.5-5.90)
[2021-04-25 08:18] LABS: Calcium 8.6 mg/dL (8.5-10.1); Potassium 4.5 mmol/L (3.5-5.1)
[2021-04-25 08:20] LABS: BUN/Creatinine Ratio 23.3
[2021-04-25 09:00] VITALS: BP 153/82
[2021-04-25] MEDS: ENOXAPARIN SOD 40 MG/0.4 ML SYRINGE SC SCH (09:12)
[2021-04-25] MEDS: DAKINS QUARTER STR 0.125% (NaHypochlorite) 473 ML TOPICAL SOL TOP SCH ×2 (09:12→21:42)
[2021-04-25] MEDS ORDERED: NEOMYCIN-BACITRACIN-POLYM 15GM TOP OINT TOP ONE (10:37)
[2021-04-25] MEDS ORDERED: BUPIVACAINE 0.5% P/F INJ 10 ML VIAL ONE (10:37)
[2021-04-25] MEDS ORDERED: ROPIVACAINE 0.5% (5MG/ML) 20ML AMPULE IJ ONE (10:37)
[2021-04-25] MEDS ORDERED: LIDOCAINE 1% HCL (LOCAL ANESTH.) INJ 20ML MDV ONE (10:37)
[2021-04-25] MEDS ORDERED: HYDROmorphone HCL 2 MG/ML VL IV PRN (10:45)
[2021-04-25] MEDS ORDERED: ACCU-CHEK COMFORT CURVE STRIP VI ONE (10:45)
[2021-04-25] MEDS ORDERED: MORPHINE SULFATE 4 MG/ML SYR/VIAL IV PRN (10:45)
[2021-04-25] MEDS ORDERED: METOCLOPRAMIDE HCL 5MG/ml INJ 2ml VIAL IV PRN (10:45)
[2021-04-25] MEDS ORDERED: MORPHINE SULFATE INJECTION 2 MG/ML SYRG IV PRN (11:00)
[2021-04-25] MEDS ORDERED: SODIUM CHLORIDE LOCK 10 ML ONE (11:29)
[2021-04-25] MEDS ORDERED: PROPOFOL 10 MG/ML 20 ML IV ONE (11:29)
[2021-04-25] MEDS ORDERED: fentaNYL CITRATE 100 MCG/2 ML VL ONE (11:29)
[2021-04-25] MEDS ORDERED: MIDAZOLAM HCL 2MG/2ML 2ml VIAL (1mg/ml) ONE (11:29)
[2021-04-25] MEDS ORDERED: ceFAZolin 1GM VL ONE (12:30)
[2021-04-25] MEDS ORDERED: ceFAZolin 1GM/50ML 50 ML IV ONE ×2 (12:31→12:33)
[2021-04-25 13:00] VITALS: BP 140/76
[2021-04-25 22:00] VITALS: BP 123/77
[2021-04-26] MEDS: VANCOMYCIN 1GM/250ML 250 ML IV SCH ×3 (00:09→18:00)
[2021-04-26] MEDS: CeftoloZANE-TAZOB 1g/0.5g in D5W 5% 100 ML IV SCH ×3 (02:33→19:31)
[2021-04-26] MEDS: SODIUM CHLORIDE 0.9% 1,000 ML IV SCH (04:47)
[2021-04-26 05:00] VITALS: BP 112/64
[2021-04-26] MEDS: ACCU-CHEK COMFORT CURVE STRIP VI SCH ×3 (06:11→17:00)
[2021-04-26] MEDS: InsuLIN REG 1unit/0.01ml Soln (100units/ml) SC SCH ×3 (06:41→17:00)
[2021-04-26 08:00] VITALS: BP 120/64
[2021-04-26] MEDS: ENOXAPARIN SOD 40 MG/0.4 ML SYRINGE SC SCH (10:00)
[2021-04-26] MEDS: DAKINS QUARTER STR 0.125% (NaHypochlorite) 473 ML TOPICAL SOL TOP SCH (10:00)
[2021-04-26 12:00] VITALS: BP 124/59
[2021-04-26 16:00] VITALS: BP 109/63
[2021-04-26 22:00] VITALS: BP 101/57
[2021-04-27] MEDS: ACCU-CHEK COMFORT CURVE STRIP VI SCH ×5 (00:02→21:25)
[2021-04-27] MEDS: InsuLIN REG 1unit/0.01ml Soln (100units/ml) SC SCH ×5 (00:03→21:26)
[2021-04-27] MEDS: CeftoloZANE-TAZOB 1g/0.5g in D5W 5% 100 ML IV SCH ×3 (02:15→18:00)
[2021-04-27] MEDS: VANCOMYCIN 1GM/250ML 250 ML IV SCH ×2 (03:25→12:00)
[2021-04-27 05:00] VITALS: BP 136/73
[2021-04-27 09:00] VITALS: BP 130/70
[2021-04-27] MEDS: ENOXAPARIN SOD 40 MG/0.4 ML SYRINGE SC SCH (10:00)
[2021-04-27 12:14] LABS: Basophils # (auto) 0 10 ^3/uL (0-0.2); Basophils % (auto) 0.5 % (0.0-2.0); Eosinophils # (auto) 0.1 10 ^3/uL (0-0.8); Eosinophils % (auto) 1.1 % (0.0-7.0); Hematocrit 27.5 % (41.0-53.0); Hemoglobin 9.3 g/dL (13.5-17.5); Lymphocytes % (auto) 13.2 % (10.0-50.0); Mean Corpuscular Hemoglobin 27.2 pg (28.0-32.0); Mean Corpuscular Hgb Conc. 33.7 g/dL (32.0-36.0); Mean Corpuscular Volume 80.5 fL (80.0-100.0); Monocytes # (auto) 0.6 10 ^3/uL (0-1.3); Monocytes % (auto) 8.3 % (0.0-12.0); Neutrophils % (auto) 76.9 % (37.0-80.0); Nucleated Red Blood Cells % 0.1 %; Red Blood Cells 3.42 10^6/uL (4.5-5.90); Red Cell Distribution Width 15.5 % (11.8-14.3); White Blood Cell 7.8 10^3/uL (4.4-10.8)
[2021-04-27 12:32] LABS: BUN/Creatinine Ratio 19.2; Calcium 8.8 mg/dL (8.5-10.1); Potassium 4.4 mmol/L (3.5-5.1)
[2021-04-27 13:00] VITALS: BP 118/70
[2021-04-27] MEDS ORDERED: GLIP5TAB12 PO (15:38)
[2021-04-27] MEDS ORDERED: BLOO1KIT60 XX (15:38)
[2021-04-27] MEDS ORDERED: INSLANTI SC (15:38)
[2021-04-27] MEDS ORDERED: CEFT1INJ IV (15:38)
[2021-04-27] MEDS ORDERED: INSU-567 XX (15:38)
[2021-04-27] MEDS ORDERED: HYDR-4902 PO (15:38)
[2021-04-27 17:00] VITALS: BP 135/69
[2021-04-27] MEDS: SODIUM CHLORIDE 0.9% 1,000 ML IV SCH (21:33)
[2021-04-27 22:00] VITALS: BP 128/70
[2021-04-28] MEDS: CeftoloZANE-TAZOB 1g/0.5g in D5W 5% 100 ML IV SCH ×3 (01:42→18:00)
[2021-04-28 05:00] VITALS: BP 138/68
[2021-04-28] MEDS: ACCU-CHEK COMFORT CURVE STRIP VI SCH ×4 (06:46→22:29)
[2021-04-28] MEDS: InsuLIN REG 1unit/0.01ml Soln (100units/ml) SC SCH ×4 (06:48→22:31)
[2021-04-28 09:00] VITALS: BP 121/62
[2021-04-28] MEDS: ENOXAPARIN SOD 40 MG/0.4 ML SYRINGE SC SCH (10:00)
[2021-04-28 12:59] VITALS: BP 129/69
[2021-04-28 17:00] VITALS: BP 128/72
[2021-04-28 22:00] VITALS: BP 131/71
[2021-04-29] MEDS: CeftoloZANE-TAZOB 1g/0.5g in D5W 5% 100 ML IV SCH ×3 (02:00→18:34)
[2021-04-29] MEDS: SODIUM CHLORIDE 0.9% 1,000 ML IV SCH (02:19)
[2021-04-29 05:00] VITALS: BP 133/72
[2021-04-29] MEDS: ACCU-CHEK COMFORT CURVE STRIP VI SCH ×4 (06:50→21:43)
[2021-04-29] MEDS: InsuLIN REG 1unit/0.01ml Soln (100units/ml) SC SCH ×3 (06:52→18:07)
[2021-04-29 09:00] VITALS: BP 111/55
[2021-04-29] MEDS: ENOXAPARIN SOD 40 MG/0.4 ML SYRINGE SC SCH (09:30)
[2021-04-29 13:24] VITALS: BP 115/71
[2021-04-29 17:00] VITALS: BP 104/49
[2021-04-29] MEDS: INSULIN LANTUS (GLARGINE) 1 /0.01ml (100units/ml) SC SCH (21:44)
[2021-04-29 22:00] VITALS: BP 122/58
[2021-04-30] MEDS: CeftoloZANE-TAZOB 1g/0.5g in D5W 5% 100 ML IV SCH ×3 (01:46→18:14)
[2021-04-30 05:00] VITALS: BP 109/56
[2021-04-30] MEDS: ACCU-CHEK COMFORT CURVE STRIP VI SCH ×4 (06:41→21:11)
[2021-04-30] MEDS: InsuLIN REG 1unit/0.01ml Soln (100units/ml) SC SCH ×3 (06:41→17:00)
[2021-04-30] MEDS: ENOXAPARIN SOD 40 MG/0.4 ML SYRINGE SC SCH (09:47)
[2021-04-30 16:40] VITALS: BP 109/60
[2021-04-30] MEDS: INSULIN LANTUS (GLARGINE) 1 /0.01ml (100units/ml) SC SCH (21:14)
[2021-04-30 22:00] VITALS: BP 116/66
[2021-05-01] MEDS: CeftoloZANE-TAZOB 1g/0.5g in D5W 5% 100 ML IV SCH ×2 (02:15→09:02)
[2021-05-01 05:00] VITALS: BP 123/61
[2021-05-01] MEDS: ACCU-CHEK COMFORT CURVE STRIP VI SCH ×4 (06:38→22:00)
[2021-05-01] MEDS: InsuLIN REG 1unit/0.01ml Soln (100units/ml) SC SCH ×3 (06:42→17:00)
[2021-05-01 06:51] LABS: Basophils # (auto) 0 10 ^3/uL (0-0.2); Eosinophils # (auto) 0.1 10 ^3/uL (0-0.8); Lymphocytes # (auto) 1.3 10 ^3/uL (0.4-5.4); Monocytes # (auto) 0.5 10 ^3/uL (0-1.3); Neutrophils # (auto) 2.6 10 ^3/uL (1.6-8.6)
[2021-05-01 06:53] LABS: Basophils % (auto) 0.9 % (0.0-2.0); Eosinophils % (auto) 3.1 % (0.0-7.0); Hematocrit 28.1 % (41.0-53.0); Hemoglobin 9.6 g/dL (13.5-17.5); Lymphocytes % (auto) 27.8 % (10.0-50.0); Mean Corpuscular Hgb Conc. 34.3 g/dL (32.0-36.0); Mean Corpuscular Volume 78.6 fL (80.0-100.0); Monocytes % (auto) 11.3 % (0.0-12.0); Neutrophils % (auto) 56.9 % (37.0-80.0); Nucleated Red Blood Cells % 0.1 %; Red Blood Cells 3.58 10^6/uL (4.5-5.90); Red Cell Distribution Width 15.2 % (11.8-14.3); White Blood Cell 4.6 10^3/uL (4.4-10.8)
[2021-05-01 06:55] LABS: BUN/Creatinine Ratio 29.6; Calcium 9.1 mg/dL (8.5-10.1); Potassium 4.2 mmol/L (3.5-5.1)
[2021-05-01 09:00] VITALS: BP 130/68
[2021-05-01] MEDS: ENOXAPARIN SOD 40 MG/0.4 ML SYRINGE SC SCH (09:04)
[2021-05-01 13:30] VITALS: BP 102/56
[2021-05-01 17:00] VITALS: BP 135/72
[2021-05-01 22:00] VITALS: BP 105/65
[2021-05-01] MEDS: INSULIN LANTUS (GLARGINE) 1 /0.01ml (100units/ml) SC SCH (22:00)
[2021-05-01] MEDS: cefTAZidime 2GM/NS 50 ML IV SCH (22:00)
[2021-05-02 05:00] VITALS: BP 102/48
[2021-05-02] MEDS: cefTAZidime 2GM/NS 50 ML IV SCH ×2 (06:09→14:06)
[2021-05-02] MEDS: InsuLIN REG 1unit/0.01ml Soln (100units/ml) SC SCH ×3 (07:17→17:00)
[2021-05-02] MEDS: ACCU-CHEK COMFORT CURVE STRIP VI SCH ×3 (07:17→17:00)
[2021-05-02 09:00] VITALS: BP 119/67
[2021-05-02] MEDS: ENOXAPARIN SOD 40 MG/0.4 ML SYRINGE SC SCH (09:15)
[2021-05-02 13:00] VITALS: BP 133/71
[2021-05-02 16:44] VITALS: BP 120/69
== END 2021-05-02 19:47 | DRG 239 ==
LOC: ER 15:26 → TELE 04-23 11:57 → TELE-WESTW 04-23 14:12 → TELE-EAST 04-25 04:30 → TELE-CENTR 05-01 16:16
PROVIDERS: ADMIT Internal Medicine; ATTEND Internal Medicine
PROC: 0Y6M0ZB Detachment at Right Foot, Partial 2nd Ray, Open Approach (ICD-10-PCS; 2021-04-25)
PROC: 0Y6M0ZC Detachment at Right Foot, Partial 3rd Ray, Open Approach (ICD-10-PCS; 2021-04-25)
PROC: 0Y6M0ZD Detachment at Right Foot, Partial 4th Ray, Open Approach (ICD-10-PCS; 2021-04-25)
PROC: 0Y6M0ZF Detachment at Right Foot, Partial 5th Ray, Open Approach (ICD-10-PCS; 2021-04-25)
PROC: 0Y6M0Z9 Detachment at Right Foot, Partial 1st Ray, Open Approach (ICD-10-PCS; principal; 2021-04-25 12:25)
DX: E11.52 Type 2 diabetes mellitus with diabetic peripheral angiopathy with gangrene (principal); M72.6 Necrotizing fasciitis; U07.1 COVID-19; A48.0 Gas gangrene; M00.9 Pyogenic arthritis, unspecified; M86.171 Other acute osteomyelitis, right ankle and foot; L03.115 Cellulitis of right lower limb; Z16.19 Resistance to other specified beta lactam antibiotics; Z16.24 Resistance to multiple antibiotics; M86.671 Other chronic osteomyelitis, right ankle and foot; E11.69 Type 2 diabetes mellitus with other specified complication; E11.621 Type 2 diabetes mellitus with foot ulcer; E11.65 Type 2 diabetes mellitus with hyperglycemia; I25.10 Atherosclerotic heart disease of native coronary artery without angina pectoris; B96.5 Pseudomonas (aeruginosa) (mallei) (pseudomallei) as the cause of diseases classified elsewhere; L97.519 Non-pressure chronic ulcer of other part of right foot with unspecified severity; F17.210 Nicotine dependence, cigarettes, uncomplicated; I10 Essential (primary) hypertension; Z79.4 Long term (current) use of insulin; Z82.3 Family history of stroke; Z82.49 Family history of ischemic heart disease and other diseases of the circulatory system; I25.2 Old myocardial infarction; Z83.3 Family history of diabetes mellitus; Z87.442 Personal history of urinary calculi; Z89.431 Acquired absence of right foot; Z98.61 Coronary angioplasty status; Z98.62 Peripheral vascular angioplasty status; Z90.49 Acquired absence of other specified parts of digestive tract; Z79.84 Long term (current) use of oral hypoglycemic drugs
CPT/HCPCS: 36415; 71045; 73630; 73700; 80048; 80053; 80202; 81001; 82962; 83605; 85025; 85610; 87040; 87070; 87075; 87077; 87186; 87205; 93005; 93926; 96365; 96367; G0378; J0690; J0696; J0713; J1815; J2001; J2250; J2543; J2704; J3490; J7060

== ENCOUNTER 2021-06-25 17:54 | Inpatient (IN) | payer OTHER ==
[~2021-06-25] VITALS: Ht 182.9 cm; Wt 72.9 kg
[~2021-06-25 17:54] MED LIST changes: +CEFT1INJ IV; -MIDAZOLAM HCL 2MG/2ML 2ml VIAL (1mg/ml) IV ONE
[2021-06-25 19:48] LABS: Eosinophils # (auto) 0.1 10 ^3/uL (0-0.8); Eosinophils % (auto) 1.1 % (0.0-7.0); Lymphocytes # (auto) 1.4 10 ^3/uL (0.4-5.4); Monocytes # (auto) 0.7 10 ^3/uL (0-1.3); Neutrophils # (auto) 5.6 10 ^3/uL (1.6-8.6); White Blood Cell 7.9 10^3/uL (4.4-10.8)
[2021-06-25 19:50] LABS: Basophils # (auto) 0 10 ^3/uL (0-0.2); Basophils % (auto) 0.5 % (0.0-2.0); Hematocrit 38.3 % (41.0-53.0); Hemoglobin 12.7 g/dL (13.5-17.5); Lymphocytes % (auto) 17.8 % (10.0-50.0); Mean Corpuscular Hemoglobin 26.6 pg (28.0-32.0); Mean Corpuscular Hgb Conc. 33.1 g/dL (32.0-36.0); Mean Corpuscular Volume 80.3 fL (80.0-100.0); Neutrophils % (auto) 71.6 % (37.0-80.0); Red Blood Cells 4.77 10^6/uL (4.5-5.90)
[2021-06-25 20:03] LABS: INR 0.97 (0.9-1.15)
[2021-06-25 20:04] LABS: Albumin 3.3 g/dL (3.4-5.0); Calcium 8.7 mg/dL (8.5-10.1); Potassium 4.2 mmol/L (3.5-5.1)
[2021-06-25 20:13] LABS: BUN/Creatinine Ratio 16.2; Bilirubin, Total 0.2 mg/dL (0.2-1.0); Total Protein 7.7 g/dL (6.4-8.2)
[2021-06-25] MEDS ORDERED: InsuLIN REG 1unit/0.01ml Soln (100units/ml) SC ONE (20:30)
[2021-06-25] MEDS ORDERED: VANCOMYCIN PER PHARMACY 0 MG IV SCH (22:45)
[2021-06-25] MEDS ORDERED: DEXTROSE (50%) 50ML SYRG IV PRN (22:45)
[2021-06-25] MEDS ORDERED: ONDANSETRON HCL 4 MG/2 ML VIAL IV PRN (22:45)
[2021-06-25] MEDS ORDERED: MORPHINE SULFATE INJECTION 2 MG/ML SYRG IV PRN (22:45)
[2021-06-25] MEDS ORDERED: VANCOMYCIN 1GM/250ML 250 ML IV ONE (23:00)
[2021-06-25] MEDS: cefTRIAXone 1GM/50ML D5W 50 ML IV SCH (23:18)
[2021-06-25] MEDS: SODIUM CHLORIDE 0.9% 1,000 ML IV SCH (23:18)
[2021-06-26] MEDS: InsuLIN REG 1unit/0.01ml Soln (100units/ml) SC SCH ×4 (00:47→18:25)
[2021-06-26] MEDS: ACCU-CHEK COMFORT CURVE STRIP VI SCH ×5 (00:47→23:55)
[2021-06-26 07:01] LABS: Basophils # (auto) 0 10 ^3/uL (0-0.2); Basophils % (auto) 0.5 % (0.0-2.0); Eosinophils # (auto) 0.2 10 ^3/uL (0-0.8); Eosinophils % (auto) 2.4 % (0.0-7.0); Hematocrit 35.4 % (41.0-53.0); Hemoglobin 11.7 g/dL (13.5-17.5); Lymphocytes # (auto) 1.3 10 ^3/uL (0.4-5.4); Lymphocytes % (auto) 17.1 % (10.0-50.0); Mean Corpuscular Hgb Conc. 33.1 g/dL (32.0-36.0); Mean Corpuscular Volume 78.6 fL (80.0-100.0); Monocytes # (auto) 0.8 10 ^3/uL (0-1.3); Monocytes % (auto) 10.5 % (0.0-12.0); Neutrophils # (auto) 5.1 10 ^3/uL (1.6-8.6); Neutrophils % (auto) 69.5 % (37.0-80.0); Red Cell Distribution Width 16.5 % (11.8-14.3); White Blood Cell 7.4 10^3/uL (4.4-10.8)
[2021-06-26 07:13] LABS: BUN/Creatinine Ratio 18.2; Calcium 8.9 mg/dL (8.5-10.1); Potassium 3.4 mmol/L (3.5-5.1)
[2021-06-26 08:51] VITALS: BP 123/70
[2021-06-26] MEDS ORDERED: ceFAZolin 1GM/50ML 100 ML IV ONE (10:59)
[2021-06-26] MEDS ORDERED: VANCOMYCIN 1GM/250ML 250 ML IV SCH (12:00)
[2021-06-26] MEDS ORDERED: ceFAZolin 1GM VL ONE (12:12)
[2021-06-26] MEDS ORDERED: fentaNYL CITRATE 100 MCG/2 ML VL ONE (12:43)
[2021-06-26] MEDS ORDERED: MIDAZOLAM HCL 2MG/2ML 2ml VIAL (1mg/ml) ONE (12:44)
[2021-06-26] MEDS ORDERED: POTASSIUM CHL 20MEQ/100ML 100 ML IV ONE (12:45)
[2021-06-26] MEDS ORDERED: PROPOFOL 10 MG/ML 20 ML IV ONE (13:13)
[2021-06-26] MEDS ORDERED: DexAMETHasone SOD PHOS 10MG/1ML VIAL INJ ONE (13:13)
[2021-06-26] MEDS ORDERED: ACCU-CHEK COMFORT CURVE STRIP VI ONE (13:15)
[2021-06-26] MEDS ORDERED: ONDANSETRON HCL 4 MG/2 ML VIAL IV PRN (13:15)
[2021-06-26] MEDS ORDERED: ePHEDrine SULFATE 50 MG/ML AMP IV PRN (13:15)
[2021-06-26] MEDS ORDERED: LABETALOL HCL 5 MG/ML 4ML SYRINGE IV PRN (13:15)
[2021-06-26] MEDS ORDERED: MIDAZOLAM HCL 2MG/2ML 2ml VIAL (1mg/ml) IV PRN (13:15)
[2021-06-26] MEDS ORDERED: HYDROmorphone HCL 2 MG/ML VL IV PRN (13:15)
[2021-06-26] MEDS ORDERED: MORPHINE SULFATE 4 MG/ML SYR/VIAL IV PRN (13:15)
[2021-06-26 14:15] VITALS: BP 146/77
[2021-06-26] MEDS: VANCOMYCIN 1GM/250ML 250 ML IV SCH (16:13)
[2021-06-26] MEDS: SODIUM CHLORIDE 0.9% 1,000 ML IV SCH (16:14)
[2021-06-26 17:00] VITALS: BP 141/79
[2021-06-26 22:01] VITALS: BP 128/70
[2021-06-26] MEDS: cefTRIAXone 1GM/50ML D5W 50 ML IV SCH (23:54)
[2021-06-27] MEDS: InsuLIN REG 1unit/0.01ml Soln (100units/ml) SC SCH ×4 (00:07→18:19)
[2021-06-27] MEDS: VANCOMYCIN 1GM/250ML 250 ML IV SCH ×2 (04:22→16:36)
[2021-06-27 05:00] VITALS: BP 105/58
[2021-06-27 05:14] LABS: Eosinophils # (auto) 0.1 10 ^3/uL (0-0.8); Mean Corpuscular Hgb Conc. 33.2 g/dL (32.0-36.0)
[2021-06-27 05:20] LABS: Basophils # (auto) 0.1 10 ^3/uL (0-0.2); Basophils % (auto) 0.7 % (0.0-2.0); Eosinophils % (auto) 0.7 % (0.0-7.0); Hematocrit 34.8 % (41.0-53.0); Hemoglobin 11.6 g/dL (13.5-17.5); Lymphocytes # (auto) 1.1 10 ^3/uL (0.4-5.4); Lymphocytes % (auto) 13.8 % (10.0-50.0); Mean Corpuscular Hemoglobin 26.5 pg (28.0-32.0); Mean Corpuscular Volume 79.6 fL (80.0-100.0); Monocytes # (auto) 0.7 10 ^3/uL (0-1.3); Neutrophils # (auto) 6.2 10 ^3/uL (1.6-8.6); Neutrophils % (auto) 75.8 % (37.0-80.0); Red Blood Cells 4.37 10^6/uL (4.5-5.90); Red Cell Distribution Width 16.7 % (11.8-14.3); White Blood Cell 8.1 10^3/uL (4.4-10.8)
[2021-06-27] MEDS: ACCU-CHEK COMFORT CURVE STRIP VI SCH ×3 (06:22→18:17)
[2021-06-27 09:40] VITALS: BP 142/75
[2021-06-27 12:44] VITALS: BP 131/68
[2021-06-27] MEDS ORDERED: ACET1CAP14 PO (13:23)
[2021-06-27] MEDS ORDERED: HYDR-4902 PO (13:23)
[2021-06-27] MEDS: INSULIN LANTUS (GLARGINE) 1 /0.01ml (100units/ml) SC SCH (15:17)
[2021-06-27] MEDS: NICOTINE 14 MG/24HR TOPICAL PATCH TD SCH (15:21)
[2021-06-27 16:37] VITALS: BP 134/70
[2021-06-27] MEDS ORDERED: cefTAZidime 1 GM in SODIUM CHL 0.9% 50 ML IV ONE (18:30)
[2021-06-27] MEDS ORDERED: metroNIDAZOLE 500MG/100ML 100 ML IV ONE (18:45)
[2021-06-27 21:49] VITALS: BP 131/84
[2021-06-28] MEDS: ACCU-CHEK COMFORT CURVE STRIP VI SCH ×4 (00:38→17:50)
[2021-06-28] MEDS: InsuLIN REG 1unit/0.01ml Soln (100units/ml) SC SCH ×4 (00:39→17:54)
[2021-06-28] MEDS: cefTAZidime 2GM/NS 50 ML IV SCH ×3 (03:19→20:44)
[2021-06-28] MEDS: metroNIDAZOLE 500MG/100ML 100 ML IV SCH ×3 (03:19→20:44)
[2021-06-28 05:00] VITALS: BP 125/73
[2021-06-28] MEDS: VANCOMYCIN 1GM/250ML 250 ML IV SCH ×2 (05:36→17:18)
[2021-06-28 08:20] LABS: Eosinophils # (auto) 0 10 ^3/uL (0-0.8); Eosinophils % (auto) 0.8 % (0.0-7.0); Lymphocytes # (auto) 1.1 10 ^3/uL (0.4-5.4); Neutrophils % (auto) 66.3 % (37.0-80.0)
[2021-06-28 08:24] LABS: Basophils # (auto) 0 10 ^3/uL (0-0.2); Basophils % (auto) 0.8 % (0.0-2.0); Hematocrit 34.9 % (41.0-53.0); Hemoglobin 11.5 g/dL (13.5-17.5); Lymphocytes % (auto) 18.9 % (10.0-50.0); Mean Corpuscular Volume 78.8 fL (80.0-100.0); Monocytes # (auto) 0.8 10 ^3/uL (0-1.3); Monocytes % (auto) 13.2 % (0.0-12.0); Neutrophils # (auto) 3.8 10 ^3/uL (1.6-8.6); Nucleated Red Blood Cells % 0.1 %; Red Blood Cells 4.43 10^6/uL (4.5-5.90); Red Cell Distribution Width 16.5 % (11.8-14.3); White Blood Cell 5.7 10^3/uL (4.4-10.8)
[2021-06-28 08:39] VITALS: BP 107/54
[2021-06-28 08:44] LABS: BUN/Creatinine Ratio 21.3; Calcium 8.7 mg/dL (8.5-10.1); Potassium 3.9 mmol/L (3.5-5.1)
[2021-06-28] MEDS: INSULIN LANTUS (GLARGINE) 1 /0.01ml (100units/ml) SC SCH (10:19)
[2021-06-28] MEDS: NICOTINE 14 MG/24HR TOPICAL PATCH TD SCH (10:22)
[2021-06-28 13:00] VITALS: BP 131/72
[2021-06-28 16:36] VITALS: BP 144/63
[2021-06-28 22:38] VITALS: BP 146/92
[2021-06-29] MEDS: InsuLIN REG 1unit/0.01ml Soln (100units/ml) SC SCH ×4 (00:53→18:52)
[2021-06-29] MEDS: ACCU-CHEK COMFORT CURVE STRIP VI SCH ×4 (00:57→18:52)
[2021-06-29] MEDS: cefTAZidime 2GM/NS 50 ML IV SCH ×3 (04:09→21:00)
[2021-06-29] MEDS: metroNIDAZOLE 500MG/100ML 100 ML IV SCH ×3 (04:10→21:30)
[2021-06-29] MEDS: VANCOMYCIN 1GM/250ML 250 ML IV SCH ×2 (04:10→17:12)
[2021-06-29 05:02] VITALS: BP 113/62
[2021-06-29 05:09] LABS: Basophils # (auto) 0 10 ^3/uL (0-0.2); Eosinophils # (auto) 0.1 10 ^3/uL (0-0.8); Eosinophils % (auto) 1.5 % (0.0-7.0); Hemoglobin 12.3 g/dL (13.5-17.5)
[2021-06-29 05:11] LABS: Basophils % (auto) 0.5 % (0.0-2.0); Hematocrit 36.8 % (41.0-53.0); Lymphocytes # (auto) 1.2 10 ^3/uL (0.4-5.4); Lymphocytes % (auto) 23.3 % (10.0-50.0); Mean Corpuscular Hemoglobin 26.1 pg (28.0-32.0); Mean Corpuscular Hgb Conc. 33.3 g/dL (32.0-36.0); Mean Corpuscular Volume 78.4 fL (80.0-100.0); Monocytes # (auto) 0.7 10 ^3/uL (0-1.3); Neutrophils # (auto) 3.1 10 ^3/uL (1.6-8.6); Neutrophils % (auto) 60.7 % (37.0-80.0); Red Blood Cells 4.69 10^6/uL (4.5-5.90); Red Cell Distribution Width 16.8 % (11.8-14.3); White Blood Cell 5.2 10^3/uL (4.4-10.8)
[2021-06-29 05:28] LABS: Calcium 8.7 mg/dL (8.5-10.1); Potassium 3.7 mmol/L (3.5-5.1)
[2021-06-29 09:00] VITALS: BP 123/71
[2021-06-29] MEDS: NICOTINE 14 MG/24HR TOPICAL PATCH TD SCH (10:00)
[2021-06-29] MEDS: INSULIN LANTUS (GLARGINE) 1 /0.01ml (100units/ml) SC SCH (10:00)
[2021-06-29 12:58] VITALS: BP 117/67
[2021-06-29 16:45] VITALS: BP 121/69
[2021-06-29 22:00] VITALS: BP 114/60
[2021-06-30] MEDS: ACCU-CHEK COMFORT CURVE STRIP VI SCH ×4 (00:32→18:05)
[2021-06-30] MEDS: InsuLIN REG 1unit/0.01ml Soln (100units/ml) SC SCH ×4 (00:34→18:15)
[2021-06-30] MEDS: metroNIDAZOLE 500MG/100ML 100 ML IV SCH ×2 (03:18→10:44)
[2021-06-30] MEDS: cefTAZidime 2GM/NS 50 ML IV SCH ×2 (03:27→11:58)
[2021-06-30] MEDS: VANCOMYCIN 1GM/250ML 250 ML IV SCH ×2 (04:39→16:52)
[2021-06-30 05:00] VITALS: BP 110/63
[2021-06-30 05:58] LABS: Basophils # (auto) 0 10 ^3/uL (0-0.2); Eosinophils # (auto) 0.1 10 ^3/uL (0-0.8); Hematocrit 36.3 % (41.0-53.0); Lymphocytes # (auto) 1.2 10 ^3/uL (0.4-5.4); Monocytes # (auto) 0.7 10 ^3/uL (0-1.3); Monocytes % (auto) 11.5 % (0.0-12.0); Nucleated Red Blood Cells % 0.1 %
[2021-06-30 05:59] LABS: Basophils % (auto) 0.7 % (0.0-2.0); Eosinophils % (auto) 1.7 % (0.0-7.0); Hemoglobin 12.2 g/dL (13.5-17.5); Lymphocytes % (auto) 20.4 % (10.0-50.0); Mean Corpuscular Hemoglobin 26.4 pg (28.0-32.0); Mean Corpuscular Hgb Conc. 33.6 g/dL (32.0-36.0); Mean Corpuscular Volume 78.5 fL (80.0-100.0); Neutrophils # (auto) 3.9 10 ^3/uL (1.6-8.6); Neutrophils % (auto) 65.7 % (37.0-80.0); Red Blood Cells 4.63 10^6/uL (4.5-5.90); Red Cell Distribution Width 16.7 % (11.8-14.3)
[2021-06-30 06:18] LABS: Potassium 3.9 mmol/L (3.5-5.1)
[2021-06-30 06:29] LABS: BUN/Creatinine Ratio 24.7; Calcium 8.8 mg/dL (8.5-10.1)
[2021-06-30 08:41] VITALS: BP 130/73
[2021-06-30] MEDS: NICOTINE 14 MG/24HR TOPICAL PATCH TD SCH (10:44)
[2021-06-30] MEDS: INSULIN LANTUS (GLARGINE) 1 /0.01ml (100units/ml) SC SCH (11:00)
[2021-06-30 13:00] VITALS: BP 118/72
[2021-06-30 17:25] VITALS: BP 125/67
[2021-06-30] MEDS: PIPERACILLIN-TAZOB 3.375GM 100 ML IV SCH ×3 (18:05→22:32)
[2021-06-30 22:00] VITALS: BP 122/69
[2021-07-01] MEDS: InsuLIN REG 1unit/0.01ml Soln (100units/ml) SC SCH ×3 (00:02→12:59)
[2021-07-01] MEDS: ACCU-CHEK COMFORT CURVE STRIP VI SCH ×3 (00:02→12:46)
[2021-07-01] MEDS: VANCOMYCIN 1GM/250ML 250 ML IV SCH ×2 (04:21→16:53)
[2021-07-01 05:00] VITALS: BP 123/66
[2021-07-01 07:01] LABS: BUN/Creatinine Ratio 18.3; Calcium 8.8 mg/dL (8.5-10.1); Potassium 4.2 mmol/L (3.5-5.1)
[2021-07-01 07:48] LABS: Basophils # (auto) 0.1 10 ^3/uL (0-0.2); Basophils % (auto) 1.1 % (0.0-2.0); Eosinophils # (auto) 0.2 10 ^3/uL (0-0.8); Eosinophils % (auto) 3.1 % (0.0-7.0); Hematocrit 35.4 % (41.0-53.0); Hemoglobin 11.9 g/dL (13.5-17.5); Lymphocytes # (auto) 1.2 10 ^3/uL (0.4-5.4); Lymphocytes % (auto) 19.3 % (10.0-50.0); Mean Corpuscular Hemoglobin 26.3 pg (28.0-32.0); Mean Corpuscular Hgb Conc. 33.7 g/dL (32.0-36.0); Mean Corpuscular Volume 78.1 fL (80.0-100.0); Monocytes # (auto) 0.6 10 ^3/uL (0-1.3); Monocytes % (auto) 9.5 % (0.0-12.0); Neutrophils # (auto) 4.2 10 ^3/uL (1.6-8.6); Nucleated Red Blood Cells % 0.1 %; Red Blood Cells 4.53 10^6/uL (4.5-5.90); Red Cell Distribution Width 16.2 % (11.8-14.3); White Blood Cell 6.2 10^3/uL (4.4-10.8)
[2021-07-01 09:00] VITALS: BP 115/70
[2021-07-01] MEDS: NICOTINE 14 MG/24HR TOPICAL PATCH TD SCH (10:22)
[2021-07-01] MEDS: INSULIN LANTUS (GLARGINE) 1 /0.01ml (100units/ml) SC SCH (12:44)
[2021-07-01] MEDS: PIPERACILLIN-TAZOB 3.375GM 100 ML IV SCH (12:46)
[2021-07-01 13:00] VITALS: BP 110/73
[2021-07-01 13:01] LABS: INR 1.06 (0.9-1.15)
[2021-07-01] MEDS ORDERED: LIDOCAINE 1% (LOCAL ANESTH.) PF 5ml SDV ID ONE (14:30)
[2021-07-01 16:33] VITALS: BP 130/79
[2021-07-01 16:47] VITALS: BP 130/79
[2021-07-01] MEDS ORDERED: SODIUM CHLOR 0.9% PF (SALINE LOCK) 10ML VIAL/SYR IV SCH (22:00)
== END 2021-07-01 17:50 | disposition home health service (06) | DRG 464 ==
LOC: ER 17:54 → OVERFLOW 22:43 → CENTRAL 23:33
PROVIDERS: ADMIT Nurse Practitioner; ATTEND Internal Medicine
PROC: 0HRMXK4 Replacement of Right Foot Skin with Nonautologous Tissue Substitute, Partial Thickness, External Approach (ICD-10-PCS; 2021-06-26)
PROC: 02HV33Z Insertion of Infusion Device into Superior Vena Cava, Percutaneous Approach (ICD-10-PCS; principal; 2021-07-01)
PROC: B548ZZA Ultrasonography of Superior Vena Cava, Guidance (ICD-10-PCS; 2021-07-01)
DX: T87.43 Infection of amputation stump, right lower extremity (principal); M86.9 Osteomyelitis, unspecified; I10 Essential (primary) hypertension; L08.9 Local infection of the skin and subcutaneous tissue, unspecified; I25.10 Atherosclerotic heart disease of native coronary artery without angina pectoris; E11.621 Type 2 diabetes mellitus with foot ulcer; Z20.822 Contact with and (suspected) exposure to COVID-19; L97.519 Non-pressure chronic ulcer of other part of right foot with unspecified severity; E11.51 Type 2 diabetes mellitus with diabetic peripheral angiopathy without gangrene; Y83.5 Amputation of limb(s) as the cause of abnormal reaction of the patient, or of later complication, without mention of misadventure at the time of the procedure; Z82.3 Family history of stroke; Z82.49 Family history of ischemic heart disease and other diseases of the circulatory system; Z83.3 Family history of diabetes mellitus; Z87.442 Personal history of urinary calculi; Z98.61 Coronary angioplasty status; I25.2 Old myocardial infarction; Z90.49 Acquired absence of other specified parts of digestive tract; E11.65 Type 2 diabetes mellitus with hyperglycemia; Z79.4 Long term (current) use of insulin; F17.210 Nicotine dependence, cigarettes, uncomplicated
CPT/HCPCS: 36415; 36569; 71045; 73630; 80048; 80053; 80202; 82565; 82962; 84132; 85025; 85610; 85652; 87040; 87077; 87186; 87205; 96361; 96365; 96372; G0378; J0690; J0696; J0713; J1100; J1815; J2250; J2543; J2704; J3480; J3490